=== PATIENT | male | born 1970 | race African-American/Black ===

== ENCOUNTER 2016-04-09 15:18 | Emergency (ER) | payer OTHER ==
[~2016-04-09] VITALS: Ht 172.7 cm; Wt 68.1 kg
[~2016-04-09 15:18] MED LIST: ASPI81 PO; INSU100V SQ; LISI-661 PO
[2016-04-09 16:16] LABS: GLUCOSE COMMENT 1 Doctor Notified; GLUCOSE,POINT OF CARE 500 MG/DL (70-110)
[2016-04-09 17:22] LABS: BASOPHILS % (AUTO) 1.5 % (0.0-2.0); EOSINOPHILS % (AUTO) 0.7 % (1.0-6.0); HEMATOCRIT 39.5 % (41-53); LYMPHOCYTES # (AUTO) 1.4 K/uL (1.0-4.8); LYMPHOCYTES % (AUTO) 21.4 % (22.0-44.0); MEAN CORPUSCULAR HGB CONC 32.9 G/dL (31.0-37.0); MEAN CORPUSCULAR VOLUME 79 fL (80-100); MONOCYTES # (AUTO) 0.3 K/uL (0.1-1.0); MONOCYTES % (AUTO) 4.4 % (2.0-9.0); NEUTROPHILS # (AUTO) 4.8 K/uL (1.8-7.7); PLATELET COUNT (AUTO) 312 K/uL (150-450); RED CELL DISTRIBUTION WIDTH 12.8 % (11.5-14.5); WHITE BLOOD COUNT (AUTO) 6.7 K/uL (4.5-11.0)
[2016-04-09 17:30] LABS: GLUCOSE COMMENT 1 Doctor Notified; GLUCOSE,POINT OF CARE 516 MG/DL (70-110)
[2016-04-09] MEDS ORDERED: INSULIN REGULAR, HUMAN 100 UNITS/ML SQ ONE (17:30)
[2016-04-09 17:32] LABS: RBC MORPHOLOGY COMMENT NORMAL RBC MORPH
[2016-04-09 17:34] LABS: PROTHROMBIN TIME 10.7 SEC (9.4-11.6)
[2016-04-09 17:43] LABS: ALBUMIN 3.5 g/dL (3.4-5.0); ANION GAP 7 mmol/L (8-16); CALCIUM, TOTAL 9.5 mg/dL (8.8-10.5); CARBON DIOXIDE 32 mmol/L (22-29); CHLORIDE 87 mmol/L (98-107); CREATININE 2.13 mg/dL (0.60-1.30); GLOMERULAR FILTR. RATE CALC 41 mL/min (>60); POTASSIUM 3.6 mmol/L (3.5-5.1); SODIUM SERUM 126 mmol/L (136-145); UREA NITROGEN, BLOOD 30 mg/dL (7-18)
[2016-04-09 17:48] LABS: B-TYPE NATRIURETIC PEPTIDE 16 pg/mL (0-100)
[2016-04-09 18:19] LABS: ALANINE AMINOTRANSFERASE 31 U/L (12-78); ASPARTATE AMINOTRANSFERASE 23 U/L (15-37); BILIRUBIN,TOTAL 0.4 mg/dL (0.1-1.0); CREATINE KINASE MB 3.3 ng/mL (0-5); CREATINE KINASE, TOTAL 261 U/L (39-308); TOTAL PROTEIN, SERUM 7.8 g/dL (6.4-8.2)
[2016-04-09 18:30] LABS: GLUCOSE COMMENT 1 Doctor Notified; GLUCOSE,POINT OF CARE 423 MG/DL (70-110)
[2016-04-09] MEDS ORDERED: SODIUM CHLORIDE 0.9% 1,000 ML IV ONE (20:15)
[2016-04-09 20:27] LABS: APPEARANCE,URINE CLEAR (CLEAR); GLUCOSE, URINE (UA) >=1000 mg/dL (NEGATIVE); KETONES,URINE NEGATIVE (NEGATIVE); LEUKOCYTE ESTERASE ,URINE NEGATIVE (NEGATIVE); OCCULT BLOOD,URINE NEGATIVE (NEGATIVE); PH,URINE 5.5 (5.0-8.0); PROTEIN,URINE NEGATIVE (NEGATIVE)
[2016-04-09 20:33] LABS: ADD UA MICROSCOPIC YES
[2016-04-09 20:43] LABS: RBC,URINE 0-2 /HPF (0-2); SQUAMOUS EPITHELIAL CELL,UR Few /LPF (None Seen); WBC,URINE 0-2 /HPF (0-5)
[2016-04-09 20:46] LABS: GLUCOSE,POINT OF CARE 309 MG/DL (70-110)
[2016-04-09 21:00] VITALS: BP 132/84
== END 2016-04-09 21:24 | disposition home or self-care (01) ==
LOC: EMS 15:19
DX: E11.65 Type 2 diabetes mellitus with hyperglycemia (principal); E11.29 Type 2 diabetes mellitus with other diabetic kidney complication; N28.9 Disorder of kidney and ureter, unspecified; K21.9 Gastro-esophageal reflux disease without esophagitis; I10 Essential (primary) hypertension; Z79.82 Long term (current) use of aspirin; Z79.4 Long term (current) use of insulin
CPT/HCPCS: 36415; 71010; 80053; 81001; 82550; 82553; 82962; 83880; 84484; 85025; 85610; 85730; 93005; 96360; 96372; 99285; J1815; J7030

== ENCOUNTER 2018-02-12 10:52 | Emergency (ER) | payer OTHER ==
[~2018-02-12] VITALS: Ht 172.7 cm; Wt 76.4 kg
[2018-02-12 12:42] LABS: BASOPHILS % (AUTO) 1.4 % (0.0-2.0); EOSINOPHILS % (AUTO) 1.9 % (1.0-6.0); HEMATOCRIT 35.7 % (41-53); HEMOGLOBIN 11.7 g/dL (13.5-17.5); LYMPHOCYTES # (AUTO) 1.4 K/uL (1.0-4.8); LYMPHOCYTES % (AUTO) 20.9 % (22.0-44.0); MEAN CORPUSCULAR HEMOGLOBIN 25.5 pg (26.0-34.0); MEAN CORPUSCULAR HGB CONC 32.8 G/dL (31.0-37.0); MEAN CORPUSCULAR VOLUME 78 fL (80-100); MONOCYTES # (AUTO) 0.5 K/uL (0.1-1.0); MONOCYTES % (AUTO) 7.8 % (2.0-9.0); NEUTROPHILS # (AUTO) 4.5 K/uL (1.8-7.7); PLATELET COUNT (AUTO) 287 K/uL (150-450); RED BLOOD CELL COUNT(AUTO) 4.59 MIL/uL (4.50-5.90); RED CELL DISTRIBUTION WIDTH 14.3 % (11.5-14.5)
[2018-02-12 12:55] LABS: CREATININE 1.68 mg/dL (0.60-1.30); POTASSIUM 4.2 mmol/L (3.5-5.1)
[2018-02-12 12:59] LABS: APPEARANCE,URINE CLEAR (CLEAR); BILIRUBIN,URINE NEGATIVE (NEGATIVE); GLUCOSE, URINE (UA) 250 mg/dL (NEGATIVE); KETONES,URINE NEGATIVE (NEGATIVE); LEUKOCYTE ESTERASE ,URINE NEGATIVE (NEGATIVE); NITRATE,URINE NEGATIVE (NEGATIVE); OCCULT BLOOD,URINE TRACE (NEGATIVE); PROTEIN,URINE NEGATIVE (NEGATIVE); UROBILINOGEN,URINE 0.2 mg/dL (<=1.0)
[2018-02-12 13:05] LABS: AMPHET/METH SCREEN,URINE NEGATIVE (NEGATIVE); BARBITURATE SCREEN, URINE NEGATIVE (NEGATIVE); BENZODIAZEPINES SCREEN,URINE NEGATIVE (NEGATIVE); CANNABINOID SCREEN,URINE NEGATIVE (NEGATIVE); COCAINE SCREEN,URINE NEGATIVE (NEGATIVE); METHADONE SCREEN, URINE NEGATIVE (NEGATIVE); OPIATE SCREEN,URINE NEGATIVE (NEGATIVE); PHENCYCLIDINE SCREEN,URINE NEGATIVE (NEGATIVE)
[2018-02-12 13:07] LABS: ALBUMIN 3.3 g/dL (3.4-5.0); BILIRUBIN,TOTAL 0.3 mg/dL (0.1-1.0); TOTAL PROTEIN, SERUM 7.7 g/dL (6.4-8.2)
[2018-02-12 13:30] LABS: BACTERIA,URINE None Seen /HPF (None Seen); RBC,URINE 0-2 /HPF (0-2); WBC,URINE None Seen /HPF (0-5)
[2018-02-12] MEDS ORDERED: SODIUM CHLORIDE 0.9% 1,000 ML IV ONE (13:30)
[2018-02-12 14:53] LABS: GLUCOSE,POINT OF CARE 139 MG/DL (70-110)
[2018-02-12 15:25] VITALS: BP 184/66
[2018-02-12 15:32] LABS: CALCIUM, TOTAL 8.7 mg/dL (8.8-10.5); CREATININE 1.6 mg/dL (0.60-1.30); POTASSIUM 4.1 mmol/L (3.5-5.1)
== END 2018-02-12 16:00 | disposition home or self-care (01) ==
LOC: EMS 10:53
DX: R53.1 Weakness (principal); E11.9 Type 2 diabetes mellitus without complications; K21.9 Gastro-esophageal reflux disease without esophagitis; G89.29 Other chronic pain; Z79.4 Long term (current) use of insulin; Z79.82 Long term (current) use of aspirin; Z79.899 Other long term (current) drug therapy
CPT/HCPCS: 36415; 71045; 80048; 80053; 80307; 81001; 82962; 83690; 84484; 85025; 93005; 99285; J7030

== ENCOUNTER 2021-04-24 23:21 | Inpatient (IN) | payer OTHER ==
[~2021-04-24] VITALS: Ht 175.3 cm; Wt 75.0 kg
[~2021-04-24 23:21] MED LIST changes: +ASPI-1450 PO; -ASPI81 PO; +GABA-1181 PO; +GLIP5 PO; +INSLAN SQ; -INSU100V SQ; -LISI-661 PO; +LISI-893 PO
[2021-04-24 23:46] LABS: GLUCOMETER DEV NAME(LOC) ERT.5; GLUCOSE,POINT OF CARE 166 MG/DL (70-110)
[2021-04-25] MEDS ORDERED: HYDROCODONE/ACETAMINOPHEN 5-325 MG TABLET PO ONE (03:15)
[2021-04-25 03:29] LABS: BASOPHILS % (AUTO) 0.9 % (0.0-2.0); EOSINOPHILS % (AUTO) 5.1 % (1.0-6.0); HEMATOCRIT 30.1 % (41-53); HEMOGLOBIN 9.8 g/dL (13.5-17.5); LYMPHOCYTES # (AUTO) 1.5 K/uL (1.0-4.8); LYMPHOCYTES % (AUTO) 27.3 % (22.0-44.0); MEAN CORPUSCULAR HEMOGLOBIN 24.6 pg (26.0-34.0); MEAN CORPUSCULAR HGB CONC 32.4 G/dL (31.0-37.0); MEAN CORPUSCULAR VOLUME 76 fL (80-100); MONOCYTES # (AUTO) 0.5 K/uL (0.1-1.0); MONOCYTES % (AUTO) 9.1 % (2.0-9.0); NEUTROPHILS # (AUTO) 3.1 K/uL (1.8-7.7); NEUTROPHILS % (AUTO) 57.6 % (40.0-70.0); PLATELET COUNT (AUTO) 343 K/uL (150-450); RED BLOOD CELL COUNT(AUTO) 3.96 MIL/uL (4.50-5.90); RED CELL DISTRIBUTION WIDTH 13.2 % (11.5-14.5)
[2021-04-25 04:08] LABS: CALCIUM, TOTAL 8.9 mg/dL (8.8-10.5); CREATININE 3.74 mg/dL (0.60-1.30); POTASSIUM 4.2 mmol/L (3.5-5.1)
[2021-04-25 04:14] LABS: ALBUMIN 2.9 g/dL (3.4-5.0); BILIRUBIN,TOTAL 0.3 mg/dL (0.1-1.0); TOTAL PROTEIN, SERUM 7.6 g/dL (6.4-8.2)
[2021-04-25 04:39] LABS: APPEARANCE,URINE CLEAR (CLEAR); BILIRUBIN,URINE NEGATIVE (NEGATIVE); GLUCOSE, URINE (UA) NEGATIVE (NEGATIVE); KETONES,URINE NEGATIVE (NEGATIVE); LEUKOCYTE ESTERASE ,URINE NEGATIVE (NEGATIVE); NITRATE,URINE NEGATIVE (NEGATIVE); OCCULT BLOOD,URINE MODERATE (NEGATIVE); PH,URINE 6.5 (5.0-8.0); PROTEIN,URINE SEE CONFIRM (NEGATIVE); UROBILINOGEN,URINE 0.2 mg/dL (<=1.0)
[2021-04-25 04:50] LABS: SULFOSALICYLIC ACID,URINE Negative (Negative)
[2021-04-25 04:51] LABS: BACTERIA,URINE None Seen /HPF (None Seen); WBC,URINE None Seen /HPF (0-5)
[2021-04-25] MEDS ORDERED: AmLODIPine BESYLATE 5 MG TABLET PO ONE ×2 (06:30→09:45)
[2021-04-25] MEDS ORDERED: ACETAMINOPHEN 325 MG TABLET PO PRN ×2 (08:15→09:30)
[2021-04-25] MEDS ORDERED: ONDANSETRON HCL 4 MG/2 ML VIAL IVP PRN ×2 (08:15→09:30)
[2021-04-25] MEDS ORDERED: HydrALAZINE HCL 20 MG/ML VIAL IVP ONE (08:15)
[2021-04-25 08:37] LABS: COVID AG,FIA SOURCE NASOPHARYNGEAL
[2021-04-25] MEDS ORDERED: FUROSEMIDE 20 MG TABLET PO SCH (09:00)
[2021-04-25] MEDS ORDERED: DEXTROSE 50%-WATER 25 GM/50 ML SYRINGE IVP PRN (09:00)
[2021-04-25] MEDS ORDERED: AmLODIPine BESYLATE 10 MG TABLET PO SCH (09:00)
[2021-04-25] MEDS ORDERED: LOSARTAN POTASSIUM 25 MG TABLET PO SCH (09:00)
[2021-04-25] MEDS: ASPIRIN 81 MG CHEWABLE TABLET PO SCH (09:13)
[2021-04-25 10:52] VITALS: BP 149/95
[2021-04-25] MEDS: INSULIN LISPRO 100 UNITS/ML SQ PRN ×2 (13:04→17:29)
[2021-04-25 13:06] LABS: GLUCOMETER DEV NAME(LOC) 5S.2B; GLUCOSE,POINT OF CARE 251 MG/DL (70-110)
[2021-04-25 16:00] VITALS: BP 137/99
[2021-04-25 17:37] LABS: GLUCOMETER DEV NAME(LOC) 5N.1C; GLUCOSE,POINT OF CARE 199 MG/DL (70-110)
[2021-04-25 20:04] VITALS: BP 132/81
[2021-04-25] MEDS: DOCUSATE SODIUM 100 MG CAPSULE PO SCH (21:00)
[2021-04-25] MEDS: FUROSEMIDE 40 MG/4 ML VIAL IVP SCH (21:09)
[2021-04-25] MEDS: HEPARIN SODIUM,PORCINE 5,000 UNITS/ML VIAL SQ SCH (21:10)
[2021-04-26 01:11] LABS: GLUCOMETER DEV NAME(LOC) 5N.3; GLUCOSE,POINT OF CARE 125 MG/DL (70-110)
[2021-04-26 04:43] VITALS: BP 138/93
[2021-04-26] MEDS: INSULIN LISPRO 100 UNITS/ML SQ PRN ×4 (06:43→20:23)
[2021-04-26 07:17] VITALS: BP 136/81
[2021-04-26 08:46] LABS: GLUCOMETER DEV NAME(LOC) 5N.1C; GLUCOSE,POINT OF CARE 163 MG/DL (70-110)
[2021-04-26] MEDS: DOCUSATE SODIUM 100 MG CAPSULE PO SCH ×2 (10:44→20:25)
[2021-04-26] MEDS: FUROSEMIDE 40 MG/4 ML VIAL IVP SCH ×2 (10:44→20:22)
[2021-04-26] MEDS: ASPIRIN 81 MG CHEWABLE TABLET PO SCH (10:44)
[2021-04-26] MEDS: HEPARIN SODIUM,PORCINE 5,000 UNITS/ML VIAL SQ SCH ×2 (10:45→20:22)
[2021-04-26] MEDS: AmLODIPine BESYLATE 10 MG TABLET PO SCH (10:45)
[2021-04-26] MEDS: FAMOTIDINE 20 MG TABLET PO SCH (10:45)
[2021-04-26 11:56] VITALS: BP 126/81
[2021-04-26 13:11] LABS: CALCIUM, TOTAL 8.4 mg/dL (8.8-10.5); CREATININE 3.98 mg/dL (0.60-1.30); PHOSPHORUS 3.8 mg/dL (2.5-4.9); POTASSIUM 4.3 mmol/L (3.5-5.1)
[2021-04-26 13:13] LABS: % IRON SATURATION 31.5 % (30-44)
[2021-04-26 16:12] VITALS: BP 138/80
[2021-04-26 17:01] LABS: GLUCOMETER DEV NAME(LOC) 5N.3; GLUCOSE,POINT OF CARE 285 MG/DL (70-110)
[2021-04-26 17:17] LABS: GLUCOMETER DEV NAME(LOC) 5N.1C; GLUCOSE,POINT OF CARE 236 MG/DL (70-110)
[2021-04-26] MEDS: GlipiZIDE 5 MG TABLET PO SCH (17:34)
[2021-04-26 19:40] VITALS: BP 123/77
[2021-04-27 00:44] VITALS: BP 139/78
[2021-04-27 04:19] VITALS: BP 147/79
[2021-04-27] MEDS: GlipiZIDE 5 MG TABLET PO SCH (05:35)
[2021-04-27] MEDS: INSULIN LISPRO 100 UNITS/ML SQ PRN ×2 (05:36→11:19)
[2021-04-27 07:26] LABS: GLUCOMETER DEV NAME(LOC) 5S.1; GLUCOSE,POINT OF CARE 240 MG/DL (70-110)
[2021-04-27 07:26] LABS: GLUCOMETER DEV NAME(LOC) 5S.1; GLUCOSE,POINT OF CARE 200 MG/DL (70-110)
[2021-04-27 07:30] LABS: SODIUM TIMED,URINE 89 mmol/L (20-110); TPROTEIN TIMED,URINE 48 mg/dL
[2021-04-27 07:32] LABS: COLLECTION TIME,URINE 24 HR; SODIUM URINE, 24HR CALC 312 mmol/24H (40-220); TPROTEIN URINE, 24HRS COLL 1680 mg/24Hr (0-165)
[2021-04-27] MEDS: HEPARIN SODIUM,PORCINE 5,000 UNITS/ML VIAL SQ SCH (07:57)
[2021-04-27] MEDS: AmLODIPine BESYLATE 10 MG TABLET PO SCH (07:57)
[2021-04-27] MEDS: FAMOTIDINE 20 MG TABLET PO SCH (07:57)
[2021-04-27] MEDS: FUROSEMIDE 40 MG/4 ML VIAL IVP SCH (07:58)
[2021-04-27] MEDS: DOCUSATE SODIUM 100 MG CAPSULE PO SCH (07:58)
[2021-04-27] MEDS: ASPIRIN 81 MG CHEWABLE TABLET PO SCH (07:58)
[2021-04-27 08:00] VITALS: BP 157/90
[2021-04-27 08:23] LABS: CALCIUM, TOTAL 8.4 mg/dL (8.8-10.5); CREATININE 4.05 mg/dL (0.60-1.30); POTASSIUM 4.4 mmol/L (3.5-5.1)
[2021-04-27] MEDS ORDERED: AMLO-258 PO (10:14)
[2021-04-27] MEDS ORDERED: FURO20 PO (10:14)
[2021-04-27 11:37] LABS: GLUCOMETER DEV NAME(LOC) 5N.1C; GLUCOSE,POINT OF CARE 244 MG/DL (70-110)
[2021-04-27 11:53] VITALS: BP 161/112
[2021-04-27] MEDS ORDERED: CloNIDine HCL 0.1 MG TABLET PO ONE (12:15)
== END 2021-04-27 13:35 | disposition home or self-care (01) | DRG 199 ==
LOC: EMS 23:35 → MERGE 04-25 09:25 → 5S 04-25 09:25
PROVIDERS: ADMIT Internal Medicine; ATTEND Internal Medicine
DX: I16.1 Hypertensive emergency (principal); N17.9 Acute kidney failure, unspecified; E11.21 Type 2 diabetes mellitus with diabetic nephropathy; I50.32 Chronic diastolic (congestive) heart failure; D64.9 Anemia, unspecified; E11.22 Type 2 diabetes mellitus with diabetic chronic kidney disease; E11.65 Type 2 diabetes mellitus with hyperglycemia; I13.2 Hypertensive heart and chronic kidney disease with heart failure and with stage 5 chronic kidney disease, or end stage renal disease; N18.6 End stage renal disease; E78.5 Hyperlipidemia, unspecified; Z79.4 Long term (current) use of insulin; Z79.82 Long term (current) use of aspirin; Z79.84 Long term (current) use of oral hypoglycemic drugs; Z79.899 Other long term (current) drug therapy; Z91.19 Patient's noncompliance with other medical treatment and regimen; Z20.822 Contact with and (suspected) exposure to COVID-19
CPT/HCPCS: 71045; 76770; 80048; 80053; 81001; 81002; 81050; 82962; 83540; 83550; 83880; 84100; 84156; 84300; 85025; 93005; 93306; 99285; J0360; J1644; J1940; J2405; 36415-L1; 36415-TC

== ENCOUNTER 2021-07-25 01:16 | Emergency (ER) | payer OTHER ==
[~2021-07-25] VITALS: Ht 180.3 cm; Wt 70.5 kg
[~2021-07-25 01:16] MED LIST changes: +AMLO-258 PO; +ASPI-1444 PO; -ASPI-1450 PO; +ATOR20TA65 PO; +BUME1TAB34 PO; +FERR325T27 PO; -GABA-1181 PO; +INSU100V36 SQ; -LISI-893 PO; +SENN8.6T20 PO
[2021-07-25] MEDS ORDERED: INSU100I26 SQ (01:39)
[2021-07-25 01:46] LABS: GLUCOMETER DEV NAME(LOC) ERT.5; GLUCOSE,POINT OF CARE 218 MG/DL (70-110)
[2021-07-25] MEDS ORDERED: ACETAMINOPHEN 325 MG TABLET PO ONE (02:45)
[2021-07-25] MEDS ORDERED: LIDOCAINE 1% 10 ML VIAL ID ONE (02:45)
[2021-07-25 04:04] LABS: SPECIMENTYPE,BODY FLUID SYNOVIAL
[2021-07-25 05:21] LABS: APPEARANCE,SPUN,BODY FLUID HAZY (CLEAR); APPEARANCE,UNSPUN,BODY FLUID CLOUDY (CLEAR)
[2021-07-25 05:22] LABS: COLOR,BODY FLUID YELLOW (LT YELLOW); TOTAL VOLUME,BODY FLUID 37 mL; WBC, BODY FLUID 6450 /cu. mm.
[2021-07-25 05:30] LABS: BASOPHILS,BODY FLUID 0 %; EOSINOPHILS,BF (ANAL) 0 %; LYMPHOCYTES,BODY FLUID 4 %; MONOCYTES,BODY FLUID 1 %; NEUTROPHILS,BODY FLUID 95 %
[2021-07-25 06:00] VITALS: BP 132/69
== END 2021-07-25 06:34 | disposition home or self-care (01) ==
LOC: EMS 01:18
DX: M25.461 Effusion, right knee (principal); I13.0 Hypertensive heart and chronic kidney disease with heart failure and stage 1 through stage 4 chronic kidney disease, or unspecified chronic kidney disease; E11.22 Type 2 diabetes mellitus with diabetic chronic kidney disease; N18.9 Chronic kidney disease, unspecified; I50.9 Heart failure, unspecified; Z79.82 Long term (current) use of aspirin
CPT/HCPCS: 20610; 73564; 82945; 82962; 87070; 87075; 87205; 89051; 89060; 99284; J3490

== ENCOUNTER 2022-02-08 14:57 | Emergency (ER) | payer OTHER ==
[~2022-02-08] VITALS: Ht 170.2 cm; Wt 75.5 kg
[~2022-02-08 14:57] MED LIST changes: -BUME1TAB34 PO; -FERR325T27 PO; -GLIP5 PO; -INSLAN SQ; +INSU100I26 SQ; -INSU100V36 SQ; -SENN8.6T20 PO
[2022-02-08] MEDS ORDERED: ACETAMINOPHEN 500 MG TABLET PO ONE (20:15)
[2022-02-08 20:49] VITALS: BP 154/100
== END 2022-02-08 21:03 | disposition home or self-care (01) ==
LOC: EMS 15:03
DX: M25.561 Pain in right knee (principal); I13.0 Hypertensive heart and chronic kidney disease with heart failure and stage 1 through stage 4 chronic kidney disease, or unspecified chronic kidney disease; E11.22 Type 2 diabetes mellitus with diabetic chronic kidney disease; I50.9 Heart failure, unspecified; N18.9 Chronic kidney disease, unspecified
CPT/HCPCS: 99283

== ENCOUNTER 2022-03-24 13:21 | Inpatient (IN) | payer OTHER ==
[~2022-03-24] VITALS: Ht 180.3 cm; Wt 93.8 kg
[2022-03-24 14:50] LABS: BASOPHILS % (AUTO) 0.6 % (0.0-2.0); EOSINOPHILS % (AUTO) 2.9 % (1.0-6.0); HEMATOCRIT 24.2 % (41-53); HEMOGLOBIN 7.6 g/dL (13.5-17.5); LYMPHOCYTES # (AUTO) 0.5 K/uL (1.0-4.8); LYMPHOCYTES % (AUTO) 9.8 % (22.0-44.0); MEAN CORPUSCULAR HEMOGLOBIN 24.2 pg (26.0-34.0); MEAN CORPUSCULAR HGB CONC 31.6 G/dL (31.0-37.0); MEAN CORPUSCULAR VOLUME 77 fL (80-100); MONOCYTES # (AUTO) 0.3 K/uL (0.1-1.0); MONOCYTES % (AUTO) 6.3 % (2.0-9.0); NEUTROPHILS % (AUTO) 80.4 % (40.0-70.0); PLATELET COUNT (AUTO) 261 K/uL (150-450); RED BLOOD CELL COUNT(AUTO) 3.16 MIL/uL (4.50-5.90); RED CELL DISTRIBUTION WIDTH 17.5 % (11.5-14.5)
[2022-03-24 15:11] LABS: CALCIUM, TOTAL 7.3 mg/dL (8.8-10.5); CREATININE 6.91 mg/dL (0.60-1.30); POTASSIUM 5.4 mmol/L (3.5-5.1)
[2022-03-24 15:16] LABS: ALBUMIN 2.4 g/dL (3.4-5.0); BILIRUBIN,TOTAL 0.2 mg/dL (0.1-1.0)
[2022-03-24 15:40] LABS: COVID AG,FIA SOURCE NASAL SWAB
[2022-03-24] MEDS ORDERED: SODIUM POLYSTYRENE SULFONATE 15 GM/60 ML SUSPENSION BOTTLE PO ONE (16:45)
[2022-03-24] MEDS ORDERED: ZOLPIDEM TARTRATE 5 MG TABLET PO PRN (16:45)
[2022-03-24] MEDS ORDERED: BISACODYL 10 MG RECTAL RECTAL SUPPOSITORY PR PRN (16:45)
[2022-03-24] MEDS ORDERED: MORPHINE SULFATE 2 MG/ML SYRINGE IVP PRN (16:45)
[2022-03-24] MEDS ORDERED: FUROSEMIDE 20 MG/2 ML VIAL IVP SCH (17:30)
[2022-03-24] MEDS: HydrALAZINE HCL 20 MG/ML VIAL IVP PRN (17:31)
[2022-03-24] MEDS: DOCUSATE SODIUM 100 MG CAPSULE PO SCH (21:55)
[2022-03-24] MEDS: ATORVASTATIN CALCIUM 20 MG TABLET PO SCH (21:56)
[2022-03-24] MEDS: FUROSEMIDE 40 MG/4 ML VIAL IVP SCH (21:58)
[2022-03-25] MEDS: HydrALAZINE HCL 20 MG/ML VIAL IVP PRN (01:20)
[2022-03-25 01:21] VITALS: BP 182/111
[2022-03-25 02:03] LABS: APPEARANCE,URINE CLEAR (CLEAR); BILIRUBIN,URINE NEGATIVE (NEGATIVE); GLUCOSE, URINE (UA) NEGATIVE (NEGATIVE); KETONES,URINE NEGATIVE (NEGATIVE); LEUKOCYTE ESTERASE ,URINE NEGATIVE (NEGATIVE); NITRATE,URINE NEGATIVE (NEGATIVE); OCCULT BLOOD,URINE SMALL (NEGATIVE); PH,URINE 6.5 (5.0-8.0); PROTEIN,URINE 30-70 mg/dL (NEGATIVE); SPECIFIC GRAVITIY, URINE 1.008 (1.003-1.030); UROBILINOGEN,URINE <=1.0 mg/dL (<=1.0)
[2022-03-25 02:14] LABS: SODIUM,URINE RANDOM 110 mmol/l (20-110)
[2022-03-25 02:15] LABS: PROTEIN,URINE RANDOM 105 mg/dL (0-11.9); UREA NITROGEN,URINE RANDOM 183 mg/dL (350-1000)
[2022-03-25 02:30] LABS: BACTERIA,URINE Rare /HPF (None Seen); SQUAMOUS EPITHELIAL CELL,UR Rare /LPF (None Seen); WBC,URINE 0-2 /HPF (0-5)
[2022-03-25] MEDS ORDERED: INFLUENZA VIRUS VACCINE QVS 2022-23 (6MO+)/PF 60 MCG/0.5 ML SYRINGE IM. ONE (04:00)
[2022-03-25] MEDS ORDERED: PNEUMOCOCCAL VACCINE POLYVALENT 0.5 ML VIAL [PPSV23] IM. ONE (04:00)
[2022-03-25 05:23] VITALS: BP 181/102
[2022-03-25] MEDS: CloNIDine HCL 0.1 MG TABLET PO PRN (05:50)
[2022-03-25 07:25] VITALS: BP 130/72
[2022-03-25] MEDS: HEPARIN SODIUM,PORCINE 5,000 UNITS/ML VIAL SQ SCH ×3 (08:50→16:00)
[2022-03-25] MEDS: FUROSEMIDE 40 MG/4 ML VIAL IVP SCH ×2 (08:51→21:02)
[2022-03-25] MEDS: ASPIRIN 81 MG DR TABLET PO SCH (08:51)
[2022-03-25] MEDS: PANTOPRAZOLE SODIUM 40 MG DR TABLET PO SCH (08:51)
[2022-03-25] MEDS: AmLODIPine BESYLATE 10 MG TABLET PO SCH (08:51)
[2022-03-25] MEDS: DOCUSATE SODIUM 100 MG CAPSULE PO SCH ×2 (08:51→21:03)
[2022-03-25 11:30] VITALS: BP 134/88
[2022-03-25 12:04] LABS: BASOPHILS % (AUTO) 0.8 % (0.0-2.0); EOSINOPHILS % (AUTO) 1.3 % (1.0-6.0); HEMATOCRIT 23.9 % (41-53); HEMOGLOBIN 7.5 g/dL (13.5-17.5); LYMPHOCYTES # (AUTO) 0.5 K/uL (1.0-4.8); MEAN CORPUSCULAR HGB CONC 31.5 G/dL (31.0-37.0); MEAN CORPUSCULAR VOLUME 76 fL (80-100); MONOCYTES # (AUTO) 0.4 K/uL (0.1-1.0); MONOCYTES % (AUTO) 6.9 % (2.0-9.0); NEUTROPHILS # (AUTO) 4.3 K/uL (1.8-7.7); PLATELET COUNT (AUTO) 284 K/uL (150-450); RED BLOOD CELL COUNT(AUTO) 3.13 MIL/uL (4.50-5.90); RED CELL DISTRIBUTION WIDTH 17.4 % (11.5-14.5)
[2022-03-25 12:06] LABS: CALCIUM, TOTAL 7.3 mg/dL (8.8-10.5); CALCIUM, TOTAL 7.4 mg/dL (8.8-10.5); CREATININE 6.67 mg/dL (0.60-1.30); CREATININE 6.68 mg/dL (0.60-1.30); POTASSIUM 4.8 mmol/L (3.5-5.1)
[2022-03-25] MEDS: FERROUS SULFATE 325 MG EC TABLET PO SCH (12:14)
[2022-03-25] MEDS: CALCITRIOL 0.25 MCG CAPSULE PO SCH (12:14)
[2022-03-25] MEDS: CARVEDILOL 6.25 MG TABLET PO SCH ×2 (12:14→21:03)
[2022-03-25] MEDS: HYDROCODONE/ACETAMINOPHEN 5-325 MG TABLET PO PRN ×2 (12:14→17:46)
[2022-03-25] MEDS: SODIUM ZIRCONIUM CYCLOSILICATE 5 GM POWDER PACKET PO SCH (12:14)
[2022-03-25 14:58] VITALS: BP 148/86
[2022-03-25] MEDS ORDERED: DEXTROSE 50%-WATER 25 GM/50 ML SYRINGE IVP PRN (17:45)
[2022-03-25] MEDS: INSULIN LISPRO 100 UNITS/ML SQ PRN ×2 (17:51→21:03)
[2022-03-25 18:06] LABS: GLUCOMETER DEV NAME(LOC) 5N.1C; GLUCOSE,POINT OF CARE 245 MG/DL (70-110)
[2022-03-25 20:07] VITALS: BP 135/79
[2022-03-25] MEDS: ISOSORBIDE DINITRATE 5 MG TABLET PO SCH (21:04)
[2022-03-25] MEDS: ATORVASTATIN CALCIUM 20 MG TABLET PO SCH (21:04)
[2022-03-25 21:56] LABS: GLUCOMETER DEV NAME(LOC) 5S.2B; GLUCOSE,POINT OF CARE 199 MG/DL (70-110)
[2022-03-25] MEDS: ACETAMINOPHEN 325 MG TABLET PO PRN (23:12)
[2022-03-26] MEDS: HEPARIN SODIUM,PORCINE 5,000 UNITS/ML VIAL SQ SCH ×3 (00:02→17:27)
[2022-03-26] MEDS: HydrALAZINE HCL 25 MG TABLET PO SCH ×4 (00:02→23:25)
[2022-03-26 00:07] VITALS: BP 134/66
[2022-03-26 02:11] LABS: SODIUM TIMED,URINE 103 mmol/L (20-110); URINE UREA NITROGEN, TIMED 194 mg/dL (350-1000)
[2022-03-26 02:29] LABS: SODIUM URINE, 24HR CALC 206 mmol/24H (40-220); UREA NITROGEN URINE,24HR CALC 3880 mg/24H (7000-20000)
[2022-03-26 02:30] LABS: COLLECTION TIME,URINE 24 HR
[2022-03-26 03:24] LABS: CREATININE,URINE 37.7 mg/dL (30.0-125.0)
[2022-03-26 03:34] LABS: CREATININE,SERUM FOR CRCL 6.67 mg/dL (0.60-1.30)
[2022-03-26 04:02] LABS: TPROTEIN TIMED,URINE 99 mg/dL
[2022-03-26 04:03] LABS: COLLECTION TIME,URINE 24 HR; TPROTEIN URINE, 24HRS COLL 1980 mg/24Hr (0-165)
[2022-03-26 04:21] VITALS: BP 142/83
[2022-03-26 06:30] LABS: BASOPHILS % (AUTO) 0.9 % (0.0-2.0); EOSINOPHILS % (AUTO) 4.5 % (1.0-6.0); HEMATOCRIT 21.7 % (41-53); HEMOGLOBIN 7.1 g/dL (13.5-17.5); LYMPHOCYTES # (AUTO) 0.7 K/uL (1.0-4.8); LYMPHOCYTES % (AUTO) 15.3 % (22.0-44.0); MEAN CORPUSCULAR HEMOGLOBIN 24.9 pg (26.0-34.0); MEAN CORPUSCULAR HGB CONC 32.6 G/dL (31.0-37.0); MEAN CORPUSCULAR VOLUME 76 fL (80-100); MONOCYTES # (AUTO) 0.4 K/uL (0.1-1.0); MONOCYTES % (AUTO) 8.5 % (2.0-9.0); NEUTROPHILS # (AUTO) 3.1 K/uL (1.8-7.7); NEUTROPHILS % (AUTO) 70.8 % (40.0-70.0); PLATELET COUNT (AUTO) 261 K/uL (150-450); RED BLOOD CELL COUNT(AUTO) 2.85 MIL/uL (4.50-5.90); RED CELL DISTRIBUTION WIDTH 16.9 % (11.5-14.5)
[2022-03-26 07:12] LABS: CALCIUM, TOTAL 7.2 mg/dL (8.8-10.5); POTASSIUM 4.7 mmol/L (3.5-5.1)
[2022-03-26 07:28] VITALS: BP 139/89
[2022-03-26] MEDS: FERROUS SULFATE 325 MG EC TABLET PO SCH (08:28)
[2022-03-26] MEDS: DOCUSATE SODIUM 100 MG CAPSULE PO SCH ×2 (08:29→21:00)
[2022-03-26] MEDS: ISOSORBIDE DINITRATE 5 MG TABLET PO SCH ×3 (08:29→20:51)
[2022-03-26] MEDS: ASPIRIN 81 MG DR TABLET PO SCH (08:29)
[2022-03-26] MEDS: SODIUM ZIRCONIUM CYCLOSILICATE 5 GM POWDER PACKET PO SCH (08:29)
[2022-03-26] MEDS: CARVEDILOL 6.25 MG TABLET PO SCH ×2 (08:29→20:51)
[2022-03-26] MEDS: AmLODIPine BESYLATE 10 MG TABLET PO SCH (08:29)
[2022-03-26] MEDS: FUROSEMIDE 40 MG/4 ML VIAL IVP SCH ×2 (08:29→20:51)
[2022-03-26] MEDS: PANTOPRAZOLE SODIUM 40 MG DR TABLET PO SCH (08:30)
[2022-03-26] MEDS: CALCITRIOL 0.25 MCG CAPSULE PO SCH (08:30)
[2022-03-26 11:37] VITALS: BP 128/87
[2022-03-26] MEDS: METOLAZONE 2.5 MG TABLET PO SCH (11:49)
[2022-03-26] MEDS: HYDROCODONE/ACETAMINOPHEN 5-325 MG TABLET PO PRN (11:49)
[2022-03-26] MEDS: INSULIN LISPRO 100 UNITS/ML SQ PRN ×3 (11:51→20:54)
[2022-03-26] MEDS: ONDANSETRON HCL 4 MG/2 ML VIAL IVP PRN (15:00)
[2022-03-26 15:38] VITALS: BP 121/74
[2022-03-26] MEDS: EPOETIN ALFA 10,000 UNITS/ML VIAL SQ SCH (17:27)
[2022-03-26] MEDS: ATORVASTATIN CALCIUM 20 MG TABLET PO SCH (20:51)
[2022-03-26 23:41] VITALS: BP 160/94
[2022-03-27 01:21] LABS: GLUCOMETER DEV NAME(LOC) 5N.1C; GLUCOSE,POINT OF CARE 268 MG/DL (70-110)
[2022-03-27 01:22] LABS: GLUCOMETER DEV NAME(LOC) 5N.1C; GLUCOSE,POINT OF CARE 208 MG/DL (70-110)
[2022-03-27 01:22] LABS: GLUCOMETER DEV NAME(LOC) 5S.2B; GLUCOSE,POINT OF CARE 217 MG/DL (70-110)
[2022-03-27 01:22] LABS: GLUCOMETER DEV NAME(LOC) 5S.2B; GLUCOSE,POINT OF CARE 177 MG/DL (70-110)
[2022-03-27] MEDS: HYDROCODONE/ACETAMINOPHEN 5-325 MG TABLET PO PRN (04:25)
[2022-03-27 05:05] VITALS: BP 137/74
[2022-03-27 06:12] LABS: BASOPHILS % (AUTO) 0.9 % (0.0-2.0); EOSINOPHILS % (AUTO) 3.2 % (1.0-6.0); HEMATOCRIT 21.6 % (41-53); HEMOGLOBIN 7.1 g/dL (13.5-17.5); LYMPHOCYTES # (AUTO) 0.7 K/uL (1.0-4.8); LYMPHOCYTES % (AUTO) 14.1 % (22.0-44.0); MEAN CORPUSCULAR HEMOGLOBIN 25.2 pg (26.0-34.0); MEAN CORPUSCULAR HGB CONC 32.8 G/dL (31.0-37.0); MEAN CORPUSCULAR VOLUME 77 fL (80-100); MONOCYTES # (AUTO) 0.4 K/uL (0.1-1.0); MONOCYTES % (AUTO) 8.7 % (2.0-9.0); NEUTROPHILS # (AUTO) 3.4 K/uL (1.8-7.7); NEUTROPHILS % (AUTO) 73.1 % (40.0-70.0); PLATELET COUNT (AUTO) 266 K/uL (150-450); RED BLOOD CELL COUNT(AUTO) 2.82 MIL/uL (4.50-5.90)
[2022-03-27] MEDS ORDERED: LIDOCAINE/PF 1% 30 ML VIAL ONE (07:31)
[2022-03-27] MEDS ORDERED: SODIUM CHLORIDE 0.9% 0 ML IV ONE (07:31)
[2022-03-27] MEDS ORDERED: BACITRACIN 28 GM OINTMENT TP ONE (07:31)
[2022-03-27] MEDS ORDERED: HEPARIN SODIUM,PORCINE 5,000 UNITS/ML VIAL ONE ×2 (07:31→09:21)
[2022-03-27 07:37] LABS: CALCIUM, TOTAL 6.8 mg/dL (8.8-10.5); CREATININE 7.23 mg/dL (0.60-1.30); POTASSIUM 5.5 mmol/L (3.5-5.1)
[2022-03-27] MEDS ORDERED: SODIUM CHLORIDE 0.9% 1,000 ML ONE (07:48)
[2022-03-27] MEDS: HydrALAZINE HCL 25 MG TABLET PO SCH ×3 (08:00→23:40)
[2022-03-27] MEDS: FERROUS SULFATE 325 MG EC TABLET PO SCH (08:00)
[2022-03-27] MEDS: HEPARIN SODIUM,PORCINE 5,000 UNITS/ML VIAL SQ SCH ×3 (08:00→16:47)
[2022-03-27] MEDS ORDERED: VANCOMYCIN HCL 1 GM/VIAL ONE (08:05)
[2022-03-27] MEDS: ASPIRIN 81 MG DR TABLET PO SCH (09:00)
[2022-03-27] MEDS: PANTOPRAZOLE SODIUM 40 MG DR TABLET PO SCH (09:00)
[2022-03-27] MEDS: CALCITRIOL 0.25 MCG CAPSULE PO SCH (09:00)
[2022-03-27] MEDS: DOCUSATE SODIUM 100 MG CAPSULE PO SCH ×2 (09:00→21:14)
[2022-03-27] MEDS: ISOSORBIDE DINITRATE 5 MG TABLET PO SCH ×3 (09:00→21:13)
[2022-03-27] MEDS: FUROSEMIDE 40 MG/4 ML VIAL IVP SCH ×2 (09:00→21:13)
[2022-03-27] MEDS: CARVEDILOL 6.25 MG TABLET PO SCH ×2 (09:00→21:14)
[2022-03-27] MEDS: SODIUM ZIRCONIUM CYCLOSILICATE 5 GM POWDER PACKET PO SCH ×2 (09:00→14:34)
[2022-03-27] MEDS: METOLAZONE 2.5 MG TABLET PO SCH (09:00)
[2022-03-27] MEDS: AmLODIPine BESYLATE 10 MG TABLET PO SCH (09:00)
[2022-03-27] MEDS ORDERED: KETAMINE HCL 50 MG/ML 10 ML VIAL IVP ONE (12:00)
[2022-03-27] MEDS ORDERED: MIDAZOLAM HCL 2 MG/2 ML VIAL IVP ONE (12:00)
[2022-03-27] MEDS ORDERED: FentaNYL CITRATE PF 100 MCG/2 ML VIAL IVP ONE (12:00)
[2022-03-27 12:08] VITALS: BP 115/67
[2022-03-27] MEDS: INSULIN LISPRO 100 UNITS/ML SQ PRN ×3 (12:39→21:12)
[2022-03-27] MEDS: MAGNESIUM HYDROXIDE SUSPENSION 30 ML UDCUP PO PRN (14:35)
[2022-03-27 15:30] VITALS: BP 125/79
[2022-03-27 19:54] VITALS: BP 153/92
[2022-03-27 20:31] LABS: GLUCOMETER DEV NAME(LOC) 5S.2B; GLUCOSE,POINT OF CARE 175 MG/DL (70-110)
[2022-03-27 20:31] LABS: GLUCOMETER DEV NAME(LOC) 5N.1C; GLUCOSE,POINT OF CARE 210 MG/DL (70-110)
[2022-03-27] MEDS: ATORVASTATIN CALCIUM 20 MG TABLET PO SCH (21:13)
[2022-03-27 23:50] VITALS: BP 160/98
[2022-03-28] MEDS: OxyCODONE HCL 5 MG IR TABLET PO PRN ×2 (03:07→13:56)
[2022-03-28 05:09] VITALS: BP 142/61
[2022-03-28] MEDS: INSULIN LISPRO 100 UNITS/ML SQ PRN ×3 (06:40→17:46)
[2022-03-28] MEDS: ACETAMINOPHEN 325 MG TABLET PO PRN ×2 (06:44→06:57)
[2022-03-28] MEDS: HydrALAZINE HCL 25 MG TABLET PO SCH ×3 (08:23→23:50)
[2022-03-28] MEDS: ASPIRIN 81 MG DR TABLET PO SCH (08:23)
[2022-03-28] MEDS: FUROSEMIDE 40 MG/4 ML VIAL IVP SCH (08:24)
[2022-03-28] MEDS: HEPARIN SODIUM,PORCINE 5,000 UNITS/ML VIAL SQ SCH ×4 (08:24→23:50)
[2022-03-28] MEDS: FERROUS SULFATE 325 MG EC TABLET PO SCH (08:24)
[2022-03-28] MEDS: ISOSORBIDE DINITRATE 5 MG TABLET PO SCH ×3 (08:25→20:05)
[2022-03-28] MEDS: DOCUSATE SODIUM 100 MG CAPSULE PO SCH ×2 (08:25→20:04)
[2022-03-28] MEDS: CARVEDILOL 6.25 MG TABLET PO SCH ×2 (08:25→20:04)
[2022-03-28] MEDS: AmLODIPine BESYLATE 10 MG TABLET PO SCH (08:25)
[2022-03-28] MEDS: PANTOPRAZOLE SODIUM 40 MG DR TABLET PO SCH (08:25)
[2022-03-28] MEDS: METOLAZONE 2.5 MG TABLET PO SCH (08:26)
[2022-03-28] MEDS: CALCITRIOL 0.25 MCG CAPSULE PO SCH (08:26)
[2022-03-28] MEDS: ONDANSETRON HCL 4 MG/2 ML VIAL IVP PRN (08:35)
[2022-03-28] MEDS: MAGNESIUM HYDROXIDE SUSPENSION 30 ML UDCUP PO PRN (08:35)
[2022-03-28 09:00] VITALS: BP 149/85
[2022-03-28] MEDS: SODIUM ZIRCONIUM CYCLOSILICATE 5 GM POWDER PACKET PO SCH (09:55)
[2022-03-28 10:50] LABS: BASOPHILS % (AUTO) 0.6 % (0.0-2.0); EOSINOPHILS % (AUTO) 0.6 % (1.0-6.0); HEMOGLOBIN 7.4 g/dL (13.5-17.5); LYMPHOCYTES # (AUTO) 0.6 K/uL (1.0-4.8); LYMPHOCYTES % (AUTO) 9.4 % (22.0-44.0); MEAN CORPUSCULAR HEMOGLOBIN 24.5 pg (26.0-34.0); MEAN CORPUSCULAR HGB CONC 32.3 G/dL (31.0-37.0); MEAN CORPUSCULAR VOLUME 76 fL (80-100); MONOCYTES # (AUTO) 0.5 K/uL (0.1-1.0); MONOCYTES % (AUTO) 8.9 % (2.0-9.0); NEUTROPHILS # (AUTO) 4.9 K/uL (1.8-7.7); NEUTROPHILS % (AUTO) 80.5 % (40.0-70.0); PLATELET COUNT (AUTO) 279 K/uL (150-450); RED BLOOD CELL COUNT(AUTO) 3.03 MIL/uL (4.50-5.90)
[2022-03-28 11:05] LABS: CALCIUM, TOTAL 7.6 mg/dL (8.8-10.5); CREATININE 7.65 mg/dL (0.60-1.30); POTASSIUM 5.7 mmol/L (3.5-5.1)
[2022-03-28 12:00] VITALS: BP 162/88
[2022-03-28] MEDS ORDERED: SODIUM ZIRCONIUM CYCLOSILICATE 5 GM POWDER PACKET PO ONE (12:00)
[2022-03-28] MEDS ORDERED: PROPOFOL 1% 20 ML VIAL IVP ONE (12:00)
[2022-03-28 19:39] VITALS: BP 138/64
[2022-03-28] MEDS: FUROSEMIDE 80 MG TABLET PO SCH (20:05)
[2022-03-28] MEDS: ATORVASTATIN CALCIUM 20 MG TABLET PO SCH (20:05)
[2022-03-28 20:21] LABS: GLUCOMETER DEV NAME(LOC) 5S.2B; GLUCOSE,POINT OF CARE 225 MG/DL (70-110)
[2022-03-29 05:20] VITALS: BP 170/82
[2022-03-29] MEDS: CloNIDine HCL 0.1 MG TABLET PO PRN (06:40)
[2022-03-29 06:56] LABS: GLUCOMETER DEV NAME(LOC) 5N.1C; GLUCOSE,POINT OF CARE 221 MG/DL (70-110)
[2022-03-29 06:56] LABS: GLUCOMETER DEV NAME(LOC) 5N.1C; GLUCOSE,POINT OF CARE 246 MG/DL (70-110)
[2022-03-29 08:00] VITALS: BP 110/51
[2022-03-29] MEDS: FERROUS SULFATE 325 MG EC TABLET PO SCH (08:30)
[2022-03-29] MEDS: FUROSEMIDE 80 MG TABLET PO SCH (08:31)
[2022-03-29] MEDS: METOLAZONE 2.5 MG TABLET PO SCH (08:31)
[2022-03-29] MEDS: DOCUSATE SODIUM 100 MG CAPSULE PO SCH ×2 (08:31→20:30)
[2022-03-29] MEDS: CALCITRIOL 0.25 MCG CAPSULE PO SCH (08:31)
[2022-03-29] MEDS: HEPARIN SODIUM,PORCINE 5,000 UNITS/ML VIAL SQ SCH ×4 (08:32→23:26)
[2022-03-29] MEDS: ASPIRIN 81 MG DR TABLET PO SCH (08:32)
[2022-03-29] MEDS: SODIUM ZIRCONIUM CYCLOSILICATE 5 GM POWDER PACKET PO SCH (08:33)
[2022-03-29] MEDS: PANTOPRAZOLE SODIUM 40 MG DR TABLET PO SCH (08:33)
[2022-03-29] MEDS: OxyCODONE HCL 5 MG IR TABLET PO PRN ×2 (08:49→15:58)
[2022-03-29 11:11] LABS: CALCIUM, TOTAL 7.6 mg/dL (8.8-10.5); CREATININE 7.97 mg/dL (0.60-1.30); POTASSIUM 5.6 mmol/L (3.5-5.1)
[2022-03-29 12:45] VITALS: BP 159/77
[2022-03-29] MEDS: INSULIN LISPRO 100 UNITS/ML SQ PRN ×2 (13:13→20:43)
[2022-03-29] MEDS: HydrALAZINE HCL 25 MG TABLET PO SCH ×6 (13:13→23:35)
[2022-03-29] MEDS: AmLODIPine BESYLATE 10 MG TABLET PO SCH (13:13)
[2022-03-29] MEDS: CARVEDILOL 6.25 MG TABLET PO SCH ×2 (13:14→20:30)
[2022-03-29] MEDS: ISOSORBIDE DINITRATE 5 MG TABLET PO SCH ×4 (13:17→21:00)
[2022-03-29 16:27] LABS: CALCIUM, TOTAL 7.8 mg/dL (8.8-10.5); CREATININE 8.4 mg/dL (0.60-1.30); MAGNESIUM 1.7 mg/dL (1.80-2.40); POTASSIUM 5.4 mmol/L (3.5-5.1)
[2022-03-29 16:29] VITALS: BP 153/87
[2022-03-29 17:06] LABS: GLUCOMETER DEV NAME(LOC) 5S.2B; GLUCOSE,POINT OF CARE 169 MG/DL (70-110)
[2022-03-29 17:06] LABS: GLUCOMETER DEV NAME(LOC) 5S.2B; GLUCOSE,POINT OF CARE 177 MG/DL (70-110)
[2022-03-29] MEDS: ATORVASTATIN CALCIUM 20 MG TABLET PO SCH (20:30)
[2022-03-29] MEDS: FUROSEMIDE 40 MG TABLET PO SCH (20:31)
[2022-03-29 20:46] LABS: GLUCOMETER DEV NAME(LOC) 5N.1C; GLUCOSE,POINT OF CARE 181 MG/DL (70-110)
[2022-03-29 20:49] VITALS: BP 145/87
[2022-03-30] VITALS (8 sets, daily range): BP systolic 138–159; BP diastolic 72–93
[2022-03-30] MEDS: MAGNESIUM HYDROXIDE SUSPENSION 30 ML UDCUP PO PRN (01:13)
[2022-03-30 06:21] LABS: GLUCOMETER DEV NAME(LOC) 5S.2B; GLUCOSE,POINT OF CARE 195 MG/DL (70-110)
[2022-03-30] MEDS: OxyCODONE HCL 5 MG IR TABLET PO PRN ×3 (06:26→07:45)
[2022-03-30] MEDS: INSULIN LISPRO 100 UNITS/ML SQ PRN ×3 (06:27→21:50)
[2022-03-30] MEDS: CHLOROTHIAZIDE SODIUM 500 MG VIAL IVP SCH ×2 (06:33→18:31)
[2022-03-30] MEDS: ONDANSETRON HCL 4 MG/2 ML VIAL IVP PRN (08:19)
[2022-03-30] MEDS: HEPARIN SODIUM,PORCINE 5,000 UNITS/ML VIAL SQ SCH ×2 (08:19→16:41)
[2022-03-30 09:56] LABS: GLUCOMETER DEV NAME(LOC) 5N.1C; GLUCOSE,POINT OF CARE 171 MG/DL (70-110)
[2022-03-30] MEDS: FUROSEMIDE 40 MG TABLET PO SCH (10:30)
[2022-03-30] MEDS: HydrALAZINE HCL 25 MG TABLET PO SCH ×2 (10:34→16:41)
[2022-03-30] MEDS: AmLODIPine BESYLATE 10 MG TABLET PO SCH (10:34)
[2022-03-30] MEDS: ASPIRIN 81 MG DR TABLET PO SCH (10:37)
[2022-03-30] MEDS: DOCUSATE SODIUM 100 MG CAPSULE PO SCH ×2 (10:37→20:48)
[2022-03-30] MEDS: FERROUS SULFATE 325 MG EC TABLET PO SCH (10:37)
[2022-03-30] MEDS: CARVEDILOL 6.25 MG TABLET PO SCH (10:37)
[2022-03-30] MEDS: PANTOPRAZOLE SODIUM 40 MG DR TABLET PO SCH (10:37)
[2022-03-30] MEDS: CALCITRIOL 0.25 MCG CAPSULE PO SCH (10:37)
[2022-03-30] MEDS: ISOSORBIDE DINITRATE 5 MG TABLET PO SCH ×3 (10:37→20:47)
[2022-03-30] MEDS ORDERED: BUME1TAB34 PO (11:15)
[2022-03-30] MEDS ORDERED: CARV6 PO (11:15)
[2022-03-30] MEDS ORDERED: SODI5POW3 PO (11:16)
[2022-03-30 12:11] LABS: GLUCOMETER DEV NAME(LOC) 5S.2B; GLUCOSE,POINT OF CARE 191 MG/DL (70-110)
[2022-03-30] MEDS: BUMETANIDE 0.25 MG/ML 4 ML VIAL IVP SCH ×2 (12:24→20:46)
[2022-03-30 12:46] LABS: BASOPHILS % (AUTO) 0.7 % (0.0-2.0); EOSINOPHILS % (AUTO) 0.9 % (1.0-6.0); HEMOGLOBIN 7.4 g/dL (13.5-17.5); LYMPHOCYTES # (AUTO) 0.6 K/uL (1.0-4.8); LYMPHOCYTES % (AUTO) 11.8 % (22.0-44.0); MEAN CORPUSCULAR HEMOGLOBIN 24.6 pg (26.0-34.0); MEAN CORPUSCULAR HGB CONC 32.1 G/dL (31.0-37.0); MEAN CORPUSCULAR VOLUME 77 fL (80-100); MONOCYTES # (AUTO) 0.6 K/uL (0.1-1.0); MONOCYTES % (AUTO) 10.2 % (2.0-9.0); NEUTROPHILS # (AUTO) 4.2 K/uL (1.8-7.7); NEUTROPHILS % (AUTO) 76.4 % (40.0-70.0); PLATELET COUNT (AUTO) 287 K/uL (150-450); RED BLOOD CELL COUNT(AUTO) 2.99 MIL/uL (4.50-5.90); RED CELL DISTRIBUTION WIDTH 17.2 % (11.5-14.5)
[2022-03-30 12:56] LABS: CALCIUM, TOTAL 7.8 mg/dL (8.8-10.5); CREATININE 8.41 mg/dL (0.60-1.30); POTASSIUM 5.5 mmol/L (3.5-5.1)
[2022-03-30] MEDS: SODIUM ZIRCONIUM CYCLOSILICATE 5 GM POWDER PACKET PO SCH (14:01)
[2022-03-30] MEDS: CARVEDILOL 12.5 MG TABLET PO SCH (20:47)
[2022-03-30] MEDS: ATORVASTATIN CALCIUM 20 MG TABLET PO SCH (20:47)
[2022-03-31] MEDS: OxyCODONE HCL 5 MG IR TABLET PO PRN ×3 (00:56→20:15)
[2022-03-31] MEDS: HEPARIN SODIUM,PORCINE 5,000 UNITS/ML VIAL SQ SCH ×3 (00:56→17:00)
[2022-03-31] MEDS: HydrALAZINE HCL 25 MG TABLET PO SCH ×3 (00:56→17:00)
[2022-03-31 05:13] VITALS: BP 134/64
[2022-03-31 05:47] LABS: GLUCOMETER DEV NAME(LOC) 5N.1C; GLUCOSE,POINT OF CARE 201 MG/DL (70-110)
[2022-03-31 05:47] LABS: GLUCOMETER DEV NAME(LOC) 5N.1C; GLUCOSE,POINT OF CARE 201 MG/DL (70-110)
[2022-03-31] MEDS: INSULIN LISPRO 100 UNITS/ML SQ PRN ×3 (06:55→20:18)
[2022-03-31 07:37] LABS: GLUCOMETER DEV NAME(LOC) 5N.1C; GLUCOSE,POINT OF CARE 188 MG/DL (70-110)
[2022-03-31 07:47] VITALS: BP 139/74
[2022-03-31 07:59] LABS: CALCIUM, TOTAL 7.5 mg/dL (8.8-10.5); CREATININE 8.61 mg/dL (0.60-1.30); PHOSPHORUS 6.4 mg/dL (2.5-4.9); POTASSIUM 5.1 mmol/L (3.5-5.1)
[2022-03-31] MEDS: DOCUSATE SODIUM 100 MG CAPSULE PO SCH ×2 (09:01→20:15)
[2022-03-31] MEDS: BUMETANIDE 0.25 MG/ML 4 ML VIAL IVP SCH ×2 (09:01→20:14)
[2022-03-31] MEDS: FERROUS SULFATE 325 MG EC TABLET PO SCH (09:01)
[2022-03-31] MEDS: ASPIRIN 81 MG DR TABLET PO SCH (09:01)
[2022-03-31] MEDS: CARVEDILOL 12.5 MG TABLET PO SCH ×2 (09:01→20:15)
[2022-03-31] MEDS: CALCITRIOL 0.25 MCG CAPSULE PO SCH (09:02)
[2022-03-31] MEDS: AmLODIPine BESYLATE 10 MG TABLET PO SCH (09:02)
[2022-03-31] MEDS: SODIUM ZIRCONIUM CYCLOSILICATE 5 GM POWDER PACKET PO SCH (09:02)
[2022-03-31] MEDS: PANTOPRAZOLE SODIUM 40 MG DR TABLET PO SCH (09:02)
[2022-03-31] MEDS: ISOSORBIDE DINITRATE 5 MG TABLET PO SCH ×3 (09:02→20:15)
[2022-03-31 11:33] VITALS: BP 138/68
[2022-03-31] MEDS ORDERED: SODIUM CHLORIDE 0.9% 250 ML IV ONE (13:27)
[2022-03-31] MEDS: SOD FERRIC GLUC COMPLX/SUCROSE 125 MG in SODIUM CHLORIDE 0.9% 100 ML IV SCH (14:21)
[2022-03-31] MEDS: ACETAMINOPHEN 325 MG TABLET PO PRN (14:21)
[2022-03-31 15:40] VITALS: BP 145/5
[2022-03-31] MEDS: ONDANSETRON HCL 4 MG/2 ML VIAL IVP PRN (20:14)
[2022-03-31] MEDS: ATORVASTATIN CALCIUM 20 MG TABLET PO SCH (20:15)
[2022-03-31 20:16] VITALS: BP 160/78
[2022-03-31] MEDS: HydrALAZINE HCL 20 MG/ML VIAL IVP PRN (20:16)
[2022-04-01] VITALS (11 sets, daily range): BP systolic 135–180; BP diastolic 66–88
[2022-04-01] MEDS: HydrALAZINE HCL 25 MG TABLET PO SCH ×3 (00:19→16:00)
[2022-04-01] MEDS: HEPARIN SODIUM,PORCINE 5,000 UNITS/ML VIAL SQ SCH ×3 (00:19→16:00)
[2022-04-01 01:01] LABS: GLUCOMETER DEV NAME(LOC) 5N.1C; GLUCOSE,POINT OF CARE 124 MG/DL (70-110)
[2022-04-01 01:01] LABS: GLUCOMETER DEV NAME(LOC) 5N.1C; GLUCOSE,POINT OF CARE 184 MG/DL (70-110)
[2022-04-01 01:01] LABS: GLUCOMETER DEV NAME(LOC) 5N.1C; GLUCOSE,POINT OF CARE 166 MG/DL (70-110)
[2022-04-01] MEDS: HydrALAZINE HCL 20 MG/ML VIAL IVP PRN ×2 (06:47→20:18)
[2022-04-01] MEDS: INSULIN LISPRO 100 UNITS/ML SQ PRN ×2 (06:48→20:22)
[2022-04-01] MEDS: ASPIRIN 81 MG DR TABLET PO SCH (07:49)
[2022-04-01] MEDS: SODIUM ZIRCONIUM CYCLOSILICATE 5 GM POWDER PACKET PO SCH (08:42)
[2022-04-01] MEDS: CARVEDILOL 12.5 MG TABLET PO SCH ×2 (08:44→20:18)
[2022-04-01] MEDS: ISOSORBIDE DINITRATE 5 MG TABLET PO SCH ×3 (08:44→20:18)
[2022-04-01] MEDS: CALCITRIOL 0.25 MCG CAPSULE PO SCH (08:44)
[2022-04-01] MEDS: AmLODIPine BESYLATE 10 MG TABLET PO SCH (08:44)
[2022-04-01] MEDS: CloNIDine HCL 0.1 MG TABLET PO PRN (08:44)
[2022-04-01] MEDS: PANTOPRAZOLE SODIUM 40 MG DR TABLET PO SCH (08:44)
[2022-04-01] MEDS: DOCUSATE SODIUM 100 MG CAPSULE PO SCH ×2 (08:44→20:18)
[2022-04-01] MEDS: BUMETANIDE 0.25 MG/ML 4 ML VIAL IVP SCH ×2 (08:45→20:18)
[2022-04-01] MEDS: CHLOROTHIAZIDE SODIUM 500 MG VIAL IVP SCH (08:46)
[2022-04-01 09:03] LABS: INR 1.1 (0.9-1.1); PROTHROMBIN TIME 11.3 SEC (9.4-11.6)
[2022-04-01] MEDS: ONDANSETRON HCL 4 MG/2 ML VIAL IVP PRN (11:37)
[2022-04-01] MEDS: SOD FERRIC GLUC COMPLX/SUCROSE 125 MG in SODIUM CHLORIDE 0.9% 100 ML IV SCH (12:32)
[2022-04-01] MEDS ORDERED: FentaNYL CITRATE PF 100 MCG/2 ML VIAL ONE (13:42)
[2022-04-01] MEDS ORDERED: MIDAZOLAM HCL 2 MG/2 ML VIAL ONE (13:42)
[2022-04-01] MEDS ORDERED: LIDOCAINE 1%/EPI 1:200,000/PF 10 ML VIAL ONE (13:42)
[2022-04-01] MEDS ORDERED: LIDOCAINE/PF 1% 30 ML VIAL ONE (13:43)
[2022-04-01] MEDS ORDERED: HEPARIN SODIUM,PORCINE 1,000 UNITS/ML 10 ML VIAL ONE (13:43)
[2022-04-01] MEDS ORDERED: IOHEXOL 300 MG/ML 50 ML VIAL ONE (14:33)
[2022-04-01] MEDS ORDERED: FentaNYL CITRATE PF 100 MCG/2 ML VIAL IVP ONE ×2 (17:00)
[2022-04-01] MEDS ORDERED: MIDAZOLAM HCL 2 MG/2 ML VIAL IVP ONE (17:00)
[2022-04-01] MEDS: FOLIC ACID/VIT B COMPLEX AND C TABLET PO SCH (18:13)
[2022-04-01 18:36] LABS: GLUCOMETER DEV NAME(LOC) 5N.1C; GLUCOSE,POINT OF CARE 156 MG/DL (70-110)
[2022-04-01 18:37] LABS: GLUCOMETER DEV NAME(LOC) 5N.1C; GLUCOSE,POINT OF CARE 156 MG/DL (70-110)
[2022-04-01 18:37] LABS: GLUCOMETER DEV NAME(LOC) 5N.1C; GLUCOSE,POINT OF CARE 150 MG/DL (70-110)
[2022-04-01 19:51] LABS: BASOPHILS % (AUTO) 0.5 % (0.0-2.0); EOSINOPHILS % (AUTO) 1.2 % (1.0-6.0); HEMATOCRIT 26.8 % (41-53); HEMOGLOBIN 8.7 g/dL (13.5-17.5); LYMPHOCYTES # (AUTO) 0.4 K/uL (1.0-4.8); LYMPHOCYTES % (AUTO) 5.9 % (22.0-44.0); MEAN CORPUSCULAR HEMOGLOBIN 25.2 pg (26.0-34.0); MEAN CORPUSCULAR HGB CONC 32.7 G/dL (31.0-37.0); MEAN CORPUSCULAR VOLUME 77 fL (80-100); MONOCYTES # (AUTO) 0.6 K/uL (0.1-1.0); MONOCYTES % (AUTO) 8.8 % (2.0-9.0); NEUTROPHILS # (AUTO) 5.3 K/uL (1.8-7.7); NEUTROPHILS % (AUTO) 83.6 % (40.0-70.0); PLATELET COUNT (AUTO) 372 K/uL (150-450); RED BLOOD CELL COUNT(AUTO) 3.47 MIL/uL (4.50-5.90); RED CELL DISTRIBUTION WIDTH 16.9 % (11.5-14.5)
[2022-04-01 20:04] LABS: INR 1.1 (0.9-1.1); PROTHROMBIN TIME 11.4 SEC (9.4-11.6)
[2022-04-01] MEDS: ATORVASTATIN CALCIUM 20 MG TABLET PO SCH (20:18)
[2022-04-02] VITALS (14 sets, daily range): BP systolic 133–162; BP diastolic 56–97
[2022-04-02] MEDS: HydrALAZINE HCL 25 MG TABLET PO SCH ×4 (01:01→23:15)
[2022-04-02] MEDS: HEPARIN SODIUM,PORCINE 5,000 UNITS/ML VIAL SQ SCH ×4 (01:01→23:15)
[2022-04-02 01:06] LABS: GLUCOMETER DEV NAME(LOC) 5N.1C; GLUCOSE,POINT OF CARE 156 MG/DL (70-110)
[2022-04-02] MEDS ORDERED: ALBUMIN HUMAN 25%-12.5GM/50ML IV BOTTLE IV ONE (06:56)
[2022-04-02] MEDS ORDERED: HEPARIN SODIUM,PORCINE 1,000 UNITS/ML VIAL IVP ONE ×2 (06:56→17:51)
[2022-04-02] MEDS: CALCITRIOL 0.25 MCG CAPSULE PO SCH (09:00)
[2022-04-02] MEDS: ASPIRIN 81 MG DR TABLET PO SCH (11:20)
[2022-04-02] MEDS: AmLODIPine BESYLATE 10 MG TABLET PO SCH (11:20)
[2022-04-02] MEDS: PANTOPRAZOLE SODIUM 40 MG DR TABLET PO SCH (11:20)
[2022-04-02] MEDS: DOCUSATE SODIUM 100 MG CAPSULE PO SCH ×2 (11:21→20:24)
[2022-04-02] MEDS: FOLIC ACID/VIT B COMPLEX AND C TABLET PO SCH (11:21)
[2022-04-02] MEDS: CARVEDILOL 12.5 MG TABLET PO SCH ×2 (11:21→20:21)
[2022-04-02] MEDS: ISOSORBIDE DINITRATE 5 MG TABLET PO SCH ×3 (11:21→20:21)
[2022-04-02] MEDS: BUMETANIDE 0.25 MG/ML 4 ML VIAL IVP SCH ×2 (11:22→20:23)
[2022-04-02] MEDS: EPOETIN ALFA 10,000 UNITS/ML VIAL SQ SCH (11:39)
[2022-04-02] MEDS: INSULIN LISPRO 100 UNITS/ML SQ PRN ×2 (11:49→20:38)
[2022-04-02] MEDS: SOD FERRIC GLUC COMPLX/SUCROSE 125 MG in SODIUM CHLORIDE 0.9% 100 ML IV SCH (13:00)
[2022-04-02] MEDS: SODIUM ZIRCONIUM CYCLOSILICATE 5 GM POWDER PACKET PO SCH (13:47)
[2022-04-02] MEDS ORDERED: HEPARIN SODIUM,PORCINE 1,000 UNITS/ML VIAL IVCATH ONE ×2 (14:00)
[2022-04-02] MEDS: ATORVASTATIN CALCIUM 20 MG TABLET PO SCH (20:21)
[2022-04-03] MEDS: ACETAMINOPHEN 325 MG TABLET PO PRN (03:42)
[2022-04-03 04:00] VITALS: BP 150/90
[2022-04-03] MEDS: INSULIN LISPRO 100 UNITS/ML SQ PRN ×4 (05:21→21:34)
[2022-04-03 05:36] LABS: GLUCOMETER DEV NAME(LOC) 5S.2B; GLUCOSE,POINT OF CARE 137 MG/DL (70-110)
[2022-04-03 06:06] LABS: GLUCOMETER DEV NAME(LOC) 5N.1C; GLUCOSE,POINT OF CARE 229 MG/DL (70-110)
[2022-04-03 06:06] LABS: GLUCOMETER DEV NAME(LOC) 5N.1C; GLUCOSE,POINT OF CARE 131 MG/DL (70-110)
[2022-04-03 06:06] LABS: GLUCOMETER DEV NAME(LOC) 5N.1C; GLUCOSE,POINT OF CARE 174 MG/DL (70-110)
[2022-04-03 06:48] LABS: BASOPHILS % (AUTO) 0.9 % (0.0-2.0); EOSINOPHILS % (AUTO) 2.1 % (1.0-6.0); HEMATOCRIT 22.7 % (41-53); HEMOGLOBIN 7.6 g/dL (13.5-17.5); LYMPHOCYTES # (AUTO) 0.5 K/uL (1.0-4.8); LYMPHOCYTES % (AUTO) 8.4 % (22.0-44.0); MEAN CORPUSCULAR HGB CONC 33.6 G/dL (31.0-37.0); MEAN CORPUSCULAR VOLUME 81 fL (80-100); MONOCYTES # (AUTO) 0.7 K/uL (0.1-1.0); NEUTROPHILS # (AUTO) 4.3 K/uL (1.8-7.7); NEUTROPHILS % (AUTO) 75.6 % (40.0-70.0); PLATELET COUNT (AUTO) 301 K/uL (150-450); RED BLOOD CELL COUNT(AUTO) 2.82 MIL/uL (4.50-5.90); RED CELL DISTRIBUTION WIDTH 16.5 % (11.5-14.5)
[2022-04-03 07:39] LABS: CREATININE 6.17 mg/dL (0.60-1.30); MAGNESIUM 1.9 mg/dL (1.80-2.40); PHOSPHORUS 5.6 mg/dL (2.5-4.9)
[2022-04-03] MEDS: ASPIRIN 81 MG DR TABLET PO SCH (11:14)
[2022-04-03] MEDS: CALCITRIOL 0.25 MCG CAPSULE PO SCH (11:14)
[2022-04-03] MEDS: FOLIC ACID/VIT B COMPLEX AND C TABLET PO SCH (11:14)
[2022-04-03] MEDS: HydrALAZINE HCL 25 MG TABLET PO SCH ×2 (11:15→15:20)
[2022-04-03] MEDS: CARVEDILOL 12.5 MG TABLET PO SCH ×2 (11:15→21:34)
[2022-04-03] MEDS: DOCUSATE SODIUM 100 MG CAPSULE PO SCH ×2 (11:15→21:00)
[2022-04-03] MEDS: PANTOPRAZOLE SODIUM 40 MG DR TABLET PO SCH (11:15)
[2022-04-03] MEDS: ISOSORBIDE DINITRATE 5 MG TABLET PO SCH ×3 (11:15→21:00)
[2022-04-03] MEDS: BUMETANIDE 0.25 MG/ML 4 ML VIAL IVP SCH ×2 (11:16→21:35)
[2022-04-03] MEDS: SODIUM ZIRCONIUM CYCLOSILICATE 5 GM POWDER PACKET PO SCH (11:16)
[2022-04-03] MEDS: HEPARIN SODIUM,PORCINE 5,000 UNITS/ML VIAL SQ SCH ×2 (11:16→15:16)
[2022-04-03] MEDS: AmLODIPine BESYLATE 10 MG TABLET PO SCH (11:20)
[2022-04-03 11:26] LABS: GLUCOMETER DEV NAME(LOC) 5N.1C; GLUCOSE,POINT OF CARE 240 MG/DL (70-110)
[2022-04-03 11:54] VITALS: BP 139/87
[2022-04-03] MEDS: SOD FERRIC GLUC COMPLX/SUCROSE 125 MG in SODIUM CHLORIDE 0.9% 100 ML IV SCH (13:00)
[2022-04-03] MEDS: OxyCODONE HCL 5 MG IR TABLET PO PRN (15:21)
[2022-04-03 16:27] VITALS: BP 146/75
[2022-04-03 18:56] LABS: GLUCOMETER DEV NAME(LOC) 5N.1C; GLUCOSE,POINT OF CARE 246 MG/DL (70-110)
[2022-04-03 20:55] VITALS: BP 157/88
[2022-04-03] MEDS: ATORVASTATIN CALCIUM 20 MG TABLET PO SCH (21:00)
[2022-04-03] MEDS: ONDANSETRON HCL 4 MG/2 ML VIAL IVP PRN (21:36)
[2022-04-03 22:45] LABS: GLUCOMETER DEV NAME(LOC) 5N.1C; GLUCOSE,POINT OF CARE 202 MG/DL (70-110)
[2022-04-04] VITALS (15 sets, daily range): BP systolic 126–171; BP diastolic 65–87
[2022-04-04] MEDS: HydrALAZINE HCL 25 MG TABLET PO SCH ×2 (00:49→08:00)
[2022-04-04] MEDS: HEPARIN SODIUM,PORCINE 5,000 UNITS/ML VIAL SQ SCH ×4 (00:49→23:29)
[2022-04-04] MEDS: INSULIN LISPRO 100 UNITS/ML SQ PRN ×4 (06:56→21:12)
[2022-04-04] MEDS: SODIUM ZIRCONIUM CYCLOSILICATE 5 GM POWDER PACKET PO SCH (09:00)
[2022-04-04] MEDS: ISOSORBIDE DINITRATE 5 MG TABLET PO SCH ×3 (09:00→20:56)
[2022-04-04] MEDS: BUMETANIDE 0.25 MG/ML 4 ML VIAL IVP SCH ×2 (09:00→20:55)
[2022-04-04] MEDS: CARVEDILOL 12.5 MG TABLET PO SCH ×2 (09:00→20:55)
[2022-04-04] MEDS: PANTOPRAZOLE SODIUM 40 MG DR TABLET PO SCH (09:00)
[2022-04-04] MEDS: ASPIRIN 81 MG DR TABLET PO SCH (09:00)
[2022-04-04] MEDS: AmLODIPine BESYLATE 10 MG TABLET PO SCH (09:00)
[2022-04-04] MEDS: CALCITRIOL 0.25 MCG CAPSULE PO SCH (09:00)
[2022-04-04] MEDS: EPOETIN ALFA 10,000 UNITS/ML VIAL SQ SCH (09:00)
[2022-04-04] MEDS: FOLIC ACID/VIT B COMPLEX AND C TABLET PO SCH (09:00)
[2022-04-04] MEDS: DOCUSATE SODIUM 100 MG CAPSULE PO SCH ×3 (09:00→21:00)
[2022-04-04] MEDS ORDERED: SODIUM CHLORIDE 0.9% 2,000 ML ONE (11:10)
[2022-04-04] MEDS ORDERED: HEPARIN SODIUM,PORCINE 1,000 UNITS/ML VIAL IVCATH ONE ×2 (14:15)
[2022-04-04] MEDS ORDERED: SODIUM CHLORIDE 0.9% 500 ML IV ONE (15:06)
[2022-04-04] MEDS: SOD FERRIC GLUC COMPLX/SUCROSE 125 MG in SODIUM CHLORIDE 0.9% 100 ML IV SCH (15:08)
[2022-04-04] MEDS: HydrALAZINE HCL 20 MG/ML VIAL IVP PRN (15:47)
[2022-04-04 19:51] LABS: GLUCOMETER DEV NAME(LOC) 6N.1; GLUCOSE,POINT OF CARE 231 MG/DL (70-110)
[2022-04-04] MEDS: ATORVASTATIN CALCIUM 20 MG TABLET PO SCH (20:56)
[2022-04-04] MEDS: HydrALAZINE HCL 50 MG TABLET PO SCH (20:56)
[2022-04-04 21:47] LABS: GLUCOMETER DEV NAME(LOC) 5N.1C; GLUCOSE,POINT OF CARE 146 MG/DL (70-110)
[2022-04-05 03:26] LABS: GLUCOMETER DEV NAME(LOC) 6N.1; GLUCOSE,POINT OF CARE 211 MG/DL (70-110)
[2022-04-05 07:06] LABS: GLUCOMETER DEV NAME(LOC) 6N.1; GLUCOSE,POINT OF CARE 186 MG/DL (70-110)
[2022-04-05 08:32] VITALS: BP 148/76
[2022-04-05] MEDS: ASPIRIN 81 MG DR TABLET PO SCH (09:28)
[2022-04-05] MEDS: CALCITRIOL 0.25 MCG CAPSULE PO SCH (09:28)
[2022-04-05] MEDS: DOCUSATE SODIUM 100 MG CAPSULE PO SCH ×2 (09:29→22:04)
[2022-04-05] MEDS: PANTOPRAZOLE SODIUM 40 MG DR TABLET PO SCH (09:30)
[2022-04-05] MEDS: FOLIC ACID/VIT B COMPLEX AND C TABLET PO SCH (09:30)
[2022-04-05] MEDS: CARVEDILOL 12.5 MG TABLET PO SCH ×2 (09:30→22:04)
[2022-04-05] MEDS: ISOSORBIDE DINITRATE 5 MG TABLET PO SCH ×4 (09:30→22:03)
[2022-04-05] MEDS: HydrALAZINE HCL 50 MG TABLET PO SCH ×2 (09:30→22:03)
[2022-04-05] MEDS: AmLODIPine BESYLATE 10 MG TABLET PO SCH (09:31)
[2022-04-05] MEDS: HEPARIN SODIUM,PORCINE 5,000 UNITS/ML VIAL SQ SCH ×3 (09:32→22:05)
[2022-04-05] MEDS: SODIUM ZIRCONIUM CYCLOSILICATE 5 GM POWDER PACKET PO SCH (09:37)
[2022-04-05] MEDS: BUMETANIDE 0.25 MG/ML 4 ML VIAL IVP SCH ×2 (09:38→22:04)
[2022-04-05 11:02] LABS: GLUCOMETER DEV NAME(LOC) 6N.1; GLUCOSE,POINT OF CARE 230 MG/DL (70-110)
[2022-04-05] MEDS: SOD FERRIC GLUC COMPLX/SUCROSE 125 MG in SODIUM CHLORIDE 0.9% 100 ML IV SCH (13:00)
[2022-04-05] MEDS: INSULIN LISPRO 100 UNITS/ML SQ PRN ×2 (17:24→22:28)
[2022-04-05 19:55] VITALS: BP 138/79
[2022-04-05 20:13] LABS: GLUCOMETER DEV NAME(LOC) 6N.2B; GLUCOSE,POINT OF CARE 265 MG/DL (70-110)
[2022-04-05] MEDS: ATORVASTATIN CALCIUM 20 MG TABLET PO SCH (22:04)
[2022-04-05 22:46] LABS: GLUCOMETER DEV NAME(LOC) 6N.2B; GLUCOSE,POINT OF CARE 198 MG/DL (70-110)
[2022-04-05 23:40] VITALS: BP 167/98
[2022-04-05] MEDS: ACETAMINOPHEN 325 MG TABLET PO PRN (23:41)
[2022-04-06 04:05] VITALS: BP 130/77
[2022-04-06] MEDS: INSULIN LISPRO 100 UNITS/ML SQ PRN ×3 (06:32→20:27)
[2022-04-06] MEDS: HEPARIN SODIUM,PORCINE 5,000 UNITS/ML VIAL SQ SCH ×2 (08:00→16:56)
[2022-04-06 08:41] VITALS: BP 135/63
[2022-04-06 09:43] LABS: GLUCOMETER DEV NAME(LOC) 6N.2B; GLUCOSE,POINT OF CARE 174 MG/DL (70-110)
[2022-04-06] MEDS: SODIUM ZIRCONIUM CYCLOSILICATE 5 GM POWDER PACKET PO SCH (10:16)
[2022-04-06] MEDS: FOLIC ACID/VIT B COMPLEX AND C TABLET PO SCH (10:19)
[2022-04-06] MEDS: HydrALAZINE HCL 50 MG TABLET PO SCH ×2 (10:19→20:25)
[2022-04-06] MEDS: ISOSORBIDE DINITRATE 5 MG TABLET PO SCH ×3 (10:19→20:26)
[2022-04-06] MEDS: CALCITRIOL 0.25 MCG CAPSULE PO SCH (10:19)
[2022-04-06] MEDS: AmLODIPine BESYLATE 10 MG TABLET PO SCH (10:20)
[2022-04-06] MEDS: CARVEDILOL 12.5 MG TABLET PO SCH ×2 (10:22→20:25)
[2022-04-06] MEDS: BUMETANIDE 0.25 MG/ML 4 ML VIAL IVP SCH ×2 (10:22→20:26)
[2022-04-06] MEDS: PANTOPRAZOLE SODIUM 40 MG DR TABLET PO SCH (10:22)
[2022-04-06] MEDS: DOCUSATE SODIUM 100 MG CAPSULE PO SCH ×2 (10:22→20:25)
[2022-04-06] MEDS: EPOETIN ALFA 10,000 UNITS/ML VIAL SQ SCH (10:29)
[2022-04-06] MEDS: ASPIRIN 81 MG DR TABLET PO SCH (10:36)
[2022-04-06] MEDS ORDERED: SODIUM CHLORIDE 0.9% 500 ML IV ONE (13:12)
[2022-04-06] MEDS: SOD FERRIC GLUC COMPLX/SUCROSE 125 MG in SODIUM CHLORIDE 0.9% 100 ML IV SCH (13:21)
[2022-04-06 14:07] LABS: GLUCOMETER DEV NAME(LOC) 6N.1; GLUCOSE,POINT OF CARE 206 MG/DL (70-110)
[2022-04-06 16:03] VITALS: BP 133/70
[2022-04-06 17:37] LABS: GLUCOMETER DEV NAME(LOC) 6N.1; GLUCOSE,POINT OF CARE 119 MG/DL (70-110)
[2022-04-06 20:21] VITALS: BP 137/80
[2022-04-06] MEDS: ATORVASTATIN CALCIUM 20 MG TABLET PO SCH (20:25)
[2022-04-07] VITALS (12 sets, daily range): BP systolic 119–154; BP diastolic 60–76
[2022-04-07] MEDS: HEPARIN SODIUM,PORCINE 5,000 UNITS/ML VIAL SQ SCH ×3 (00:21→16:00)
[2022-04-07 03:54] LABS: GLUCOMETER DEV NAME(LOC) 6N.2B; GLUCOSE,POINT OF CARE 180 MG/DL (70-110)
[2022-04-07] MEDS: INSULIN LISPRO 100 UNITS/ML SQ PRN (06:00)
[2022-04-07] MEDS: DOCUSATE SODIUM 100 MG CAPSULE PO SCH ×2 (09:00→09:57)
[2022-04-07] MEDS: BUMETANIDE 0.25 MG/ML 4 ML VIAL IVP SCH (09:56)
[2022-04-07] MEDS: ASPIRIN 81 MG DR TABLET PO SCH (09:58)
[2022-04-07] MEDS: ISOSORBIDE DINITRATE 5 MG TABLET PO SCH ×3 (09:58→16:07)
[2022-04-07] MEDS: SODIUM ZIRCONIUM CYCLOSILICATE 5 GM POWDER PACKET PO SCH (10:00)
[2022-04-07] MEDS: FOLIC ACID/VIT B COMPLEX AND C TABLET PO SCH (10:00)
[2022-04-07] MEDS: PANTOPRAZOLE SODIUM 40 MG DR TABLET PO SCH (10:00)
[2022-04-07] MEDS: CALCITRIOL 0.25 MCG CAPSULE PO SCH (10:01)
[2022-04-07] MEDS ORDERED: SODIUM CHLORIDE 0.9% 1,000 ML ONE ×2 (10:42)
[2022-04-07] MEDS ORDERED: ISOS5 PO (11:00)
[2022-04-07] MEDS ORDERED: SYRI-590 SQ (11:00)
[2022-04-07] MEDS ORDERED: FOLI0.8T2 PO (11:00)
[2022-04-07] MEDS ORDERED: CARV12 PO (11:00)
[2022-04-07] MEDS ORDERED: [UNRECOGNIZED DRUG - CODE] MC (11:00)
[2022-04-07] MEDS ORDERED: CALC0.2521 PO (11:00)
[2022-04-07] MEDS ORDERED: SODI5POW3 PO (11:00)
[2022-04-07] MEDS ORDERED: HYDR-4174 PO (11:00)
[2022-04-07] MEDS ORDERED: HEPARIN SODIUM,PORCINE 1,000 UNITS/ML VIAL IVCATH ONE ×2 (13:00)
[2022-04-07] MEDS: SOD FERRIC GLUC COMPLX/SUCROSE 125 MG in SODIUM CHLORIDE 0.9% 100 ML IV SCH (13:00)
[2022-04-07 15:16] LABS: GLUCOMETER DEV NAME(LOC) 6N.1; GLUCOSE,POINT OF CARE 144 MG/DL (70-110)
[2022-04-07] MEDS: HydrALAZINE HCL 50 MG TABLET PO SCH (16:06)
[2022-04-07] MEDS: CARVEDILOL 12.5 MG TABLET PO SCH (16:06)
[2022-04-07] MEDS: AmLODIPine BESYLATE 10 MG TABLET PO SCH (16:07)
[2022-04-07] MEDS ORDERED: HEPARIN SODIUM,PORCINE 1,000 UNITS/ML VIAL IVP ONE (18:14)
== END 2022-04-07 18:15 | disposition home or self-care (01) | DRG 180 ==
LOC: EMS 13:34 → 5S 17:09 → 6S 04-04 16:45
PROVIDERS: ADMIT Internal Medicine; ATTEND Internal Medicine
PROC: 03180KD Bypass Left Brachial Artery to Upper Arm Vein with Nonautologous Tissue Substitute, Open Approach (ICD-10-PCS; principal; 2022-03-27 09:05)
PROC: 5A1D70Z Performance of Urinary Filtration, Intermittent, Less than 6 Hours Per Day (ICD-10-PCS; 2022-03-31)
PROC: 0JH63XZ Insertion of Tunneled Vascular Access Device into Chest Subcutaneous Tissue and Fascia, Percutaneous Approach (ICD-10-PCS; 2022-04-01)
PROC: 02H633Z Insertion of Infusion Device into Right Atrium, Percutaneous Approach (ICD-10-PCS; 2022-04-01)
PROC: B5181ZA Fluoroscopy of Superior Vena Cava using Low Osmolar Contrast, Guidance (ICD-10-PCS; 2022-04-01)
PROC: B548ZZA Ultrasonography of Superior Vena Cava, Guidance (ICD-10-PCS; 2022-04-01)
PROC: 5A1D70Z Performance of Urinary Filtration, Intermittent, Less than 6 Hours Per Day (ICD-10-PCS; 2022-04-01)
PROC: 5A1D70Z Performance of Urinary Filtration, Intermittent, Less than 6 Hours Per Day (ICD-10-PCS; 2022-04-02)
PROC: 5A1D70Z Performance of Urinary Filtration, Intermittent, Less than 6 Hours Per Day (ICD-10-PCS; 2022-04-03)
DX: I13.2 Hypertensive heart and chronic kidney disease with heart failure and with stage 5 chronic kidney disease, or end stage renal disease (principal); I42.9 Cardiomyopathy, unspecified; N17.9 Acute kidney failure, unspecified; D63.1 Anemia in chronic kidney disease; E87.1 Hypo-osmolality and hyponatremia; E11.22 Type 2 diabetes mellitus with diabetic chronic kidney disease; E11.319 Type 2 diabetes mellitus with unspecified diabetic retinopathy without macular edema; I50.41 Acute combined systolic (congestive) and diastolic (congestive) heart failure; N18.6 End stage renal disease; E87.5 Hyperkalemia; N50.89 Other specified disorders of the male genital organs; E11.65 Type 2 diabetes mellitus with hyperglycemia; I16.0 Hypertensive urgency; E78.5 Hyperlipidemia, unspecified; Z20.822 Contact with and (suspected) exposure to COVID-19; Z99.2 Dependence on renal dialysis; Z79.899 Other long term (current) drug therapy; Z79.4 Long term (current) use of insulin; Z91.199 Patient's noncompliance with other medical treatment and regimen due to unspecified reason
CPT/HCPCS: 36245; 36561; 71046; 76000; 76770; 76870; 76937; 80048; 80053; 81001; 81050; 82570; 82575; 82728; 82962; 83540; 83550; 83735; 83880; 83970; 84100; 84156; 84166; 84300; 84484; 84540; 85025; 85610; 85730; 87340; 90935; 93005; 93306; 93970; 99285; J0360; J0690; J0885; J1205; J1644; J1940; J2250; J2405; J2704; J2916; J3010; J3370; J3490; J7030; J7040; J7050; P9047; Q9967; 36415-L1; 36415-TC; C1716; Z7610

== ENCOUNTER 2022-04-16 11:21 | Emergency (ER) | payer OTHER ==
[~2022-04-16] VITALS: Ht 175.3 cm; Wt 79.5 kg
[~2022-04-16 11:21] MED LIST changes: +BUME1TAB34 PO; +CALC0.2521 PO; +CARV12 PO; +FOLI0.8T2 PO; +HYDR-4174 PO; -INSU100I26 SQ; +ISOS5 PO; +SODI5POW3 PO; +SYRI-590 SQ; +[UNRECOGNIZED DRUG - CODE] MC
[2022-04-16 14:41] LABS: BASOPHILS % (AUTO) 0.4 % (0.0-2.0); EOSINOPHILS % (AUTO) 0 % (1.0-6.0); HEMATOCRIT 29.3 % (41-53); HEMOGLOBIN 9.2 g/dL (13.5-17.5); LYMPHOCYTES # (AUTO) 0.3 K/uL (1.0-4.8); LYMPHOCYTES % (AUTO) 3.2 % (22.0-44.0); MEAN CORPUSCULAR HEMOGLOBIN 24.9 pg (26.0-34.0); MEAN CORPUSCULAR HGB CONC 31.4 G/dL (31.0-37.0); MEAN CORPUSCULAR VOLUME 79 fL (80-100); MONOCYTES # (AUTO) 0.5 K/uL (0.1-1.0); MONOCYTES % (AUTO) 4.8 % (2.0-9.0); NEUTROPHILS # (AUTO) 9.2 K/uL (1.8-7.7); PLATELET COUNT (AUTO) 370 K/uL (150-450); RED BLOOD CELL COUNT(AUTO) 3.69 MIL/uL (4.50-5.90); RED CELL DISTRIBUTION WIDTH 17.9 % (11.5-14.5)
[2022-04-16 14:43] LABS: NEUTROPHILS % (AUTO) 91.6 % (40.0-70.0)
[2022-04-16] MEDS ORDERED: METOCLOPRAMIDE HCL 5 MG/ML 2 ML VIAL IVP ONE ×2 (14:45→19:00)
[2022-04-16 14:52] LABS: CALCIUM, TOTAL 8.2 mg/dL (8.8-10.5); CREATININE 5.39 mg/dL (0.60-1.30); POTASSIUM 4.4 mmol/L (3.5-5.1)
[2022-04-16 14:56] LABS: ALBUMIN 2.4 g/dL (3.4-5.0); BILIRUBIN,TOTAL 0.5 mg/dL (0.1-1.0); MAGNESIUM 2.1 mg/dL (1.80-2.40); PHOSPHORUS 4.2 mg/dL (2.5-4.9)
[2022-04-16] MEDS ORDERED: AmLODIPine BESYLATE 10 MG TABLET PO ONE (15:45)
[2022-04-16] MEDS ORDERED: SODIUM CHLORIDE 0.9% 500 ML IV ONE (18:15)
[2022-04-16 20:23] VITALS: BP 182/86
== END 2022-04-16 20:29 | disposition home or self-care (01) ==
LOC: EMS 12:54
DX: R11.2 Nausea with vomiting, unspecified (principal); E11.22 Type 2 diabetes mellitus with diabetic chronic kidney disease; I13.2 Hypertensive heart and chronic kidney disease with heart failure and with stage 5 chronic kidney disease, or end stage renal disease; N18.6 End stage renal disease; Z99.2 Dependence on renal dialysis; Z98.890 Other specified postprocedural states
CPT/HCPCS: 99285; 74176; 96374; 76705; 71045; 96361; 80053; 83690; 83735; 84100; 84484; 85025; 36415; 93005; 96376; J2765; J7040; 96375

== ENCOUNTER 2022-07-06 08:41 | Emergency (ER) | payer OTHER | END 2022-07-06 09:11 | disposition left against medical advice (07) | LOC: EMS 08:44 | DX: Z53.21 Procedure and treatment not carried out due to patient leaving prior to being seen by health care provider (principal) ==

== ENCOUNTER 2023-03-11 10:16 | Emergency (ER) | payer OTHER ==
[~2023-03-11] VITALS: Ht 180.3 cm; Wt 70.5 kg
[2023-03-11 10:21] VITALS: TEMP 100.3
[2023-03-11 10:40] LABS: COVID AG,FIA SOURCE NASAL SWAB
[2023-03-11] MEDS ORDERED: ACETAMINOPHEN 500 MG TABLET PO ONE (10:45)
[2023-03-11 10:50] LABS: BASOPHILS % (AUTO) 0.5 % (0.0-2.0); EOSINOPHILS % (AUTO) 0.1 % (1.0-6.0); HEMATOCRIT 33.8 % (41-53); HEMOGLOBIN 11.1 g/dL (13.5-17.5); LYMPHOCYTES # (AUTO) 0.4 K/uL (1.0-4.8); LYMPHOCYTES % (AUTO) 4.6 % (22.0-44.0); MEAN CORPUSCULAR HEMOGLOBIN 28.1 pg (26.0-34.0); MEAN CORPUSCULAR HGB CONC 32.8 G/dL (31.0-37.0); MEAN CORPUSCULAR VOLUME 86 fL (80-100); MONOCYTES # (AUTO) 1.1 K/uL (0.1-1.0); MONOCYTES % (AUTO) 11.6 % (2.0-9.0); NEUTROPHILS # (AUTO) 7.8 K/uL (1.8-7.7); NEUTROPHILS % (AUTO) 83.2 % (40.0-70.0); PLATELET COUNT (AUTO) 178 K/uL (150-450); RED BLOOD CELL COUNT(AUTO) 3.94 MIL/uL (4.50-5.90); RED CELL DISTRIBUTION WIDTH 19.5 % (11.5-14.5); WHITE BLOOD COUNT (AUTO) 9.3 K/uL (4.5-11.0)
[2023-03-11 10:59] LABS: CALCIUM, TOTAL 8.5 mg/dL (8.8-10.5); CREATININE 9.03 mg/dL (0.60-1.30); POTASSIUM 4.2 mmol/L (3.5-5.1)
[2023-03-11 11:04] LABS: INFLUENZA TYPE A NEGATIVE FOR TYPE A (NEGATIVE); INFLUENZA TYPE B NEGATIVE FOR TYPE B (NEGATIVE)
[2023-03-11 11:07] LABS: SARS-COV2 (COVID) ANTIGEN,FIA Positive (Negative)
[2023-03-11 11:27] VITALS: BP 170/96; PULSE 74; RESP 20
== END 2023-03-11 14:14 | disposition home or self-care (01) ==
LOC: EMS 10:29
DX: U07.1 COVID-19 (principal); E11.22 Type 2 diabetes mellitus with diabetic chronic kidney disease; I13.2 Hypertensive heart and chronic kidney disease with heart failure and with stage 5 chronic kidney disease, or end stage renal disease; N18.6 End stage renal disease; Z99.2 Dependence on renal dialysis; Z98.890 Other specified postprocedural states
CPT/HCPCS: 71045; 80048; 82962; 85025; 87804; 99284; 36415-L1; 36415-TC

== ENCOUNTER 2024-02-01 06:55 | Emergency (ER) | payer OTHER ==
[~2024-02-01 06:55] MED LIST changes: -AMLO-258 PO; -BUME1TAB34 PO; +BUME1TAB50 PO; -FOLI0.8T2 PO; +FOLI0.8T54 PO; -HYDR-4174 PO; +HYDR50TA37 PO; +NIFE-129 PO; +SACU1TAB PO; +SEVE800T7 PO; -SODI5POW3 PO
== END 2024-02-01 07:45 | disposition home or self-care (01) ==
LOC: EMS 06:55
DX: R10.9 Unspecified abdominal pain (principal); I13.2 Hypertensive heart and chronic kidney disease with heart failure and with stage 5 chronic kidney disease, or end stage renal disease; E11.22 Type 2 diabetes mellitus with diabetic chronic kidney disease; N18.6 End stage renal disease; I50.20 Unspecified systolic (congestive) heart failure; Z79.82 Long term (current) use of aspirin; Z99.2 Dependence on renal dialysis
CPT/HCPCS: 99283; Z7502

== ENCOUNTER 2024-02-14 08:14 | Emergency (ER) | payer OTHER ==
[~2024-02-14] VITALS: Ht 177.8 cm; Wt 77.3 kg
[2024-02-14 09:13] LABS: BASOPHILS % (AUTO) 1.2 % (0.0-2.0); EOSINOPHILS % (AUTO) 1.6 % (1.0-6.0); HEMATOCRIT 32.5 % (41-53); HEMOGLOBIN 10.5 g/dL (13.5-17.5); LYMPHOCYTES # (AUTO) 0.9 K/uL (1.0-4.8); LYMPHOCYTES % (AUTO) 16.2 % (22.0-44.0); MEAN CORPUSCULAR HEMOGLOBIN 26.6 pg (26.0-34.0); MEAN CORPUSCULAR HGB CONC 32.4 G/dL (31.0-37.0); MEAN CORPUSCULAR VOLUME 82 fL (80-100); MONOCYTES # (AUTO) 0.5 K/uL (0.1-1.0); MONOCYTES % (AUTO) 8.5 % (2.0-9.0); NEUTROPHILS # (AUTO) 4.1 K/uL (1.8-7.7); NEUTROPHILS % (AUTO) 72.5 % (40.0-70.0); PLATELET COUNT (AUTO) 200 K/uL (150-450); RED BLOOD CELL COUNT(AUTO) 3.97 MIL/uL (4.50-5.90); RED CELL DISTRIBUTION WIDTH 18.9 % (11.5-14.5); WHITE BLOOD COUNT (AUTO) 5.7 K/uL (4.5-11.0)
[2024-02-14 09:22] LABS: CREATININE 9.31 mg/dL (0.60-1.30); POTASSIUM 4.9 mmol/L (3.5-5.1)
[2024-02-14 09:27] LABS: ALBUMIN 3.1 g/dL (3.4-5.0); BILIRUBIN,DIRECT 0.2 mg/dL (0.00-0.20); BILIRUBIN,TOTAL 0.6 mg/dL (0.1-1.0); TOTAL PROTEIN, SERUM 6.6 g/dL (6.4-8.2)
[2024-02-14 09:28] LABS: TROPONIN I-HIGH SENSITIVITY 47 ng/L (<76)
[2024-02-14 14:10] VITALS: BP 177/89; PULSE 70; RESP 16; TEMP 98; O2SAT 96
== END 2024-02-14 15:18 | disposition home or self-care (01) ==
LOC: EMS 08:14
DX: I13.2 Hypertensive heart and chronic kidney disease with heart failure and with stage 5 chronic kidney disease, or end stage renal disease (principal); E11.22 Type 2 diabetes mellitus with diabetic chronic kidney disease; N17.9 Acute kidney failure, unspecified; I50.9 Heart failure, unspecified; N18.6 End stage renal disease; Z79.82 Long term (current) use of aspirin; Z99.2 Dependence on renal dialysis
CPT/HCPCS: 80048; 80076; 83690; 84484; 85025; 93005; 99284

== ENCOUNTER 2024-05-25 22:00 | Inpatient (IN) | payer OTHER ==
[~2024-05-25] VITALS: Ht 180.3 cm; Wt 59.0 kg
[~2024-05-25 22:00] MED LIST changes: +ONDA-104 PO
[2024-05-25] MEDS: METOCLOPRAMIDE HCL 5 MG/ML 2 ML VIAL IVP ONE (23:38)
[2024-05-25] MEDS: MORPHINE SULFATE 2 MG/ML SYRINGE IVP ONE (23:38)
[2024-05-26] MEDS ORDERED: ALBUTEROL SULFATE 2.5 MG/0.5 ML NEB SOLUTION NEB PRN
[2024-05-26] MEDS ORDERED: HydrALAZINE HCL 20 MG/ML VIAL IVP PRN
[2024-05-26] MEDS: HEPARIN SODIUM,PORCINE 5,000 UNITS/ML VIAL SQ SCH
[2024-05-26] MEDS: NITROGLYCERIN 2% (1 GM=INCH) OINTMENT PACKET TP SCH
[2024-05-26] MEDS ORDERED: ONDANSETRON HCL 4 MG/2 ML VIAL IVP PRN
[2024-05-26] MEDS ORDERED: ONDANSETRON 4 MG TABLET PO PRN
[2024-05-26] MEDS ORDERED: IPRATROPIUM BROMIDE 0.5 MG/2.5 ML NEB SOLUTION NEB PRN
[2024-05-26] MEDS ORDERED: ACETAMINOPHEN 325 MG TABLET PO PRN
[2024-05-26] MEDS: LABETALOL HCL 5 MG/ML 20 ML VIAL IVP ONE (00:08)
[2024-05-26] MEDS: HydrALAZINE HCL 25 MG TABLET PO SCH (00:33)
[2024-05-26] MEDS: CARVEDILOL 6.25 MG TABLET PO SCH (00:33)
[2024-05-26 00:44] LABS: BASOPHILS % (AUTO) 0.8 % (0.0-2.0); EOSINOPHILS % (AUTO) 0.2 % (1.0-6.0); HEMATOCRIT 40.8 % (41-53); HEMOGLOBIN 13.2 g/dL (13.5-17.5); LYMPHOCYTES # (AUTO) 0.5 K/uL (1.0-4.8); LYMPHOCYTES % (AUTO) 6.5 % (22.0-44.0); MEAN CORPUSCULAR HEMOGLOBIN 25.9 pg (26.0-34.0); MEAN CORPUSCULAR HGB CONC 32.3 G/dL (31.0-37.0); MEAN CORPUSCULAR VOLUME 80 fL (80-100); MONOCYTES # (AUTO) 0.3 K/uL (0.1-1.0); NEUTROPHILS # (AUTO) 7.1 K/uL (1.8-7.7); PLATELET COUNT (AUTO) 181 K/uL (150-450); RED BLOOD CELL COUNT(AUTO) 5.09 MIL/uL (4.50-5.90); RED CELL DISTRIBUTION WIDTH 18.3 % (11.5-14.5)
[2024-05-26 00:46] LABS: NEUTROPHILS % (AUTO) 88.5 % (40.0-70.0)
[2024-05-26 00:52] LABS: ANION GAP 12 mmol/L (8-16); CARBON DIOXIDE 29 mmol/L (22-29); CHLORIDE 96 mmol/L (98-107); GLOMERULAR FILTR. RATE CALC 15 mL/min (>60); GLUCOSE,RANDOM 175 mg/dL (70-110); POTASSIUM 3.9 mmol/L (3.5-5.1); SODIUM SERUM 137 mmol/L (136-145); UREA NITROGEN, BLOOD 23 mg/dL (7-18)
[2024-05-26 00:56] LABS: ALBUMIN 3.1 g/dL (3.4-5.0); BILIRUBIN,DIRECT 0.3 mg/dL (0.00-0.20); BILIRUBIN,TOTAL 0.8 mg/dL (0.1-1.0); TOTAL PROTEIN, SERUM 7.2 g/dL (6.4-8.2)
[2024-05-26 00:59] LABS: LACTIC ACID 1.9 mmol/L (0.4-2.0)
[2024-05-26 01:01] LABS: LIPASE 23 U/L (16-77); TROPONIN I-HIGH SENSITIVITY 66 ng/L (<76)
[2024-05-26 01:07] LABS: B-TYPE NATRIURETIC PEPTIDE < 5000 pg/mL (0-100)
[2024-05-26 03:34] LABS: TROPONIN I-HIGH SENSITIVITY 89 ng/L (<76)
[2024-05-26 03:43] VITALS: BP 139/90; PULSE 68; RESP 18; TEMP 97.7; O2SAT 99
[2024-05-26 05:44] VITALS: BP 131/71; PULSE 66; RESP 18; TEMP 97.7; O2SAT 99
[2024-05-26 07:25] VITALS: BP 135/79; PULSE 67; RESP 19; TEMP 97.8; O2SAT 100
[2024-05-26] MEDS: SEVELAMER CARBONATE 800 MG TABLET PO SCH (08:00)
[2024-05-26] MEDS: BUMETANIDE 1 MG TABLET PO SCH (09:00)
[2024-05-26] MEDS: ISOSORBIDE DINITRATE 5 MG TABLET PO SCH (09:00)
[2024-05-26 12:00] VITALS: BP 141/74; PULSE 65; RESP 18; TEMP 98.2; O2SAT 99
[2024-05-26 17:44] VITALS: BP 123/54; PULSE 62; RESP 18; TEMP 98; O2SAT 100
[2024-05-26] MEDS: CALCITRIOL 0.25 MCG CAPSULE PO SCH (18:14)
[2024-05-26] MEDS: SACUBITRIL/VALSARTAN 24-26 MG TABLET PO SCH (18:14)
[2024-05-26] MEDS: FOLIC ACID/VIT B COMPLEX AND C TABLET PO SCH (18:14)
[2024-05-26] MEDS: NIFEdipine 60 MG ER TABLET PO SCH (18:16)
[2024-05-26] MEDS: ASPIRIN 81 MG DR TABLET PO SCH (18:16)
[2024-05-26] MEDS: ATORVASTATIN CALCIUM 20 MG TABLET PO SCH (21:00)
[2024-05-27] VITALS (13 sets, daily range): BP systolic 87–139; BP diastolic 46–78; PULSE 60–103; RESP 17–18; TEMP 97.8–98.3; O2SAT 95–98
[2024-05-27] MEDS: HEPARIN SODIUM,PORCINE 5,000 UNITS/ML VIAL SQ ONE (01:07)
[2024-05-27] MEDS ORDERED: HEPARIN SODIUM,PORCINE 5,000 UNITS/ML VIAL SQ SCH (02:00)
[2024-05-27] MEDS: HEPARIN SODIUM,PORCINE 5,000 UNITS/ML VIAL SQ SCH (08:00)
[2024-05-27] MEDS ORDERED: SODIUM CHLORIDE 0.9% 1,000 ML ONE (14:40)
== END 2024-05-27 20:50 | disposition home or self-care (01) | DRG 194 ==
LOC: EMS 22:04 → EDH 05-26 00:15 → 5N 05-26 03:39
PROVIDERS: ADMIT Internal Medicine; ATTEND Internal Medicine
PROC: 5A1D70Z Performance of Urinary Filtration, Intermittent, Less than 6 Hours Per Day (ICD-10-PCS; principal; 2024-05-27)
DX: I13.2 Hypertensive heart and chronic kidney disease with heart failure and with stage 5 chronic kidney disease, or end stage renal disease (principal); G93.41 Metabolic encephalopathy; N17.9 Acute kidney failure, unspecified; E83.39 Other disorders of phosphorus metabolism; N18.6 End stage renal disease; D63.1 Anemia in chronic kidney disease; I16.1 Hypertensive emergency; I50.43 Acute on chronic combined systolic (congestive) and diastolic (congestive) heart failure; E11.22 Type 2 diabetes mellitus with diabetic chronic kidney disease; E78.5 Hyperlipidemia, unspecified; R09.02 Hypoxemia; Z99.2 Dependence on renal dialysis; Z82.49 Family history of ischemic heart disease and other diseases of the circulatory system; Z83.3 Family history of diabetes mellitus; Z91.119 Patient's noncompliance with dietary regimen due to unspecified reason
CPT/HCPCS: 80048; 80076; 83605; 83690; 83880; 84484; 85025; 87081; 87340; 90935; 93005; 97116; 97162; 99285; J1644; J2270; J2765; J3490; J7030

== ENCOUNTER 2024-11-25 17:48 | Inpatient (IN) | payer OTHER ==
[~2024-11-25] VITALS: Ht 180.3 cm; Wt 87.2 kg
[~2024-11-25 17:48] MED LIST changes: +[UNRECOGNIZED DRUG - CODE] MC; -[UNRECOGNIZED DRUG - CODE] MC
[2024-11-25 18:35] LABS: PLATELET COUNT (AUTO) 216 K/uL (150-450); RED BLOOD CELL COUNT(AUTO) 4.39 MIL/uL (4.50-5.90); RED CELL DISTRIBUTION WIDTH 19.6 % (11.5-14.5); WHITE BLOOD COUNT (AUTO) 6.6 K/uL (4.5-11.0)
[2024-11-25 18:45] LABS: CALCIUM, TOTAL 7.8 mg/dL (8.8-10.5); CREATININE 8.22 mg/dL (0.60-1.30); GLOMERULAR FILTR. RATE CALC 8 mL/min (>60); GLUCOSE,RANDOM 191 mg/dL (70-110); SODIUM SERUM 134 mmol/L (136-145); UREA NITROGEN, BLOOD 39 mg/dL (7-18)
[2024-11-25 18:59] LABS: TROPONIN I-HIGH SENSITIVITY 259 ng/L (<76)
[2024-11-25 19:09] LABS: ASPARTATE AMINOTRANSFERASE 320 U/L (15-37); TOTAL PROTEIN, SERUM 6.9 g/dL (6.4-8.2)
[2024-11-25] MEDS: ONDANSETRON HCL 4 MG/2 ML VIAL IVP ONE (19:43)
[2024-11-25] MEDS: FAMOTIDINE 20 MG/2 ML VIAL IVP ONE (19:43)
[2024-11-25] MEDS: MORPHINE SULFATE 2 MG/ML SYRINGE IVP ONE (19:44)
[2024-11-25 20:55] LABS: TROPONIN I-HIGH SENSITIVITY 235 ng/L (<76)
[2024-11-26] VITALS: BP 165/85; PULSE 70; RESP 20; TEMP 97.5; O2SAT 99
[2024-11-26] MEDS: ONDANSETRON HCL 4 MG/2 ML VIAL IVP PRN (00:31)
[2024-11-26] MEDS: MORPHINE SULFATE 2 MG/ML SYRINGE IVP PRN (03:59)
[2024-11-26 04:00] VITALS: BP 115/66; PULSE 62; RESP 18; TEMP 97.7; O2SAT 100
[2024-11-26 12:16] VITALS: BP 107/60; PULSE 58; RESP 19; TEMP 97.6; O2SAT 99
[2024-11-26 20:19] LABS: PLATELET COUNT (AUTO) 187 K/uL (150-450); RED BLOOD CELL COUNT(AUTO) 4.19 MIL/uL (4.50-5.90); RED CELL DISTRIBUTION WIDTH 19.2 % (11.5-14.5); WHITE BLOOD COUNT (AUTO) 3.3 K/uL (4.5-11.0)
[2024-11-26 20:26] LABS: CALCIUM, TOTAL 7.5 mg/dL (8.8-10.5); CREATININE 9.31 mg/dL (0.60-1.30); GLOMERULAR FILTR. RATE CALC 7.0 mL/min (>60); GLUCOSE,RANDOM 151.0 mg/dL (70-110); SODIUM SERUM 134.0 mmol/L (136-145); UREA NITROGEN, BLOOD 46.0 mg/dL (7-18)
[2024-11-26 20:31] LABS: ASPARTATE AMINOTRANSFERASE 43.0 U/L (15-37); TOTAL PROTEIN, SERUM 5.5 g/dL (6.4-8.2)
[2024-11-26 21:00] LABS: BAND NEUTROPHILS % (MANUAL) 2 % (0-5); BASOPHILS % (MANUAL) 1 % (0-2); EOSINOPHILS % (MANUAL) 2 % (1-6); LYMPHOCYTES % (MANUAL) 20 % (22-44); MONOCYTES % (MANUAL) 10 % (2-9); SEGMENTED NEUTROPHILS % 65 % (40-70)
[2024-11-26 23:50] VITALS: BP 114/72; PULSE 59; RESP 18; TEMP 97.5; O2SAT 98
[2024-11-27 05:02] VITALS: BP 115/71; PULSE 60; RESP 19; TEMP 97.5; O2SAT 98
[2024-11-27 06:45] LABS: PLATELET COUNT (AUTO) 182 K/uL (150-450); RED BLOOD CELL COUNT(AUTO) 3.92 MIL/uL (4.50-5.90); RED CELL DISTRIBUTION WIDTH 19.8 % (11.5-14.5); WHITE BLOOD COUNT (AUTO) 3.2 K/uL (4.5-11.0)
[2024-11-27 06:54] LABS: ASPARTATE AMINOTRANSFERASE 43.0 U/L (15-37); CALCIUM, TOTAL 7.0 mg/dL (8.8-10.5); CREATININE 9.19 mg/dL (0.60-1.30); GLOMERULAR FILTR. RATE CALC 7.0 mL/min (>60); GLUCOSE,RANDOM 167.0 mg/dL (70-110); SODIUM SERUM 134.0 mmol/L (136-145); TOTAL PROTEIN, SERUM 5.4 g/dL (6.4-8.2); UREA NITROGEN, BLOOD 47.0 mg/dL (7-18)
[2024-11-27 08:06] VITALS: BP 123/68; PULSE 58; RESP 18; TEMP 97.5; O2SAT 99
[2024-11-27 11:08] VITALS: BP 128/77; PULSE 58; RESP 16; TEMP 97.5; O2SAT 100
[2024-11-27 15:11] VITALS: BP 131/75; PULSE 57; RESP 16; TEMP 97.7; O2SAT 99
[2024-11-27 20:48] VITALS: BP 107/63; PULSE 55; RESP 18; TEMP 97.8; O2SAT 99
[2024-11-27] MEDS ORDERED: DEXTROSE 50%-WATER 25 GM/50 ML SYRINGE IVP PRN (22:15)
[2024-11-27] MEDS: INSULIN LISPRO 100 UNITS/ML SQ PRN (22:16)
[2024-11-28] VITALS (14 sets, daily range): BP systolic 110–156; BP diastolic 62–87; PULSE 53–79; RESP 18–19; TEMP 97.2–98.2; O2SAT 95–97
[2024-11-28 06:17] LABS: PLATELET COUNT (AUTO) 185 K/uL (150-450); RED BLOOD CELL COUNT(AUTO) 3.95 MIL/uL (4.50-5.90); RED CELL DISTRIBUTION WIDTH 19.4 % (11.5-14.5); WHITE BLOOD COUNT (AUTO) 4.6 K/uL (4.5-11.0)
[2024-11-28 06:31] LABS: ASPARTATE AMINOTRANSFERASE 37.0 U/L (15-37); CALCIUM, TOTAL 7.3 mg/dL (8.8-10.5); CREATININE 9.52 mg/dL (0.60-1.30); GLOMERULAR FILTR. RATE CALC 7.0 mL/min (>60); GLUCOSE,RANDOM 91.0 mg/dL (70-110); SODIUM SERUM 133.0 mmol/L (136-145); TOTAL PROTEIN, SERUM 6.2 g/dL (6.4-8.2); UREA NITROGEN, BLOOD 54.0 mg/dL (7-18)
[2024-11-28] MEDS ORDERED: SODIUM CHLORIDE 0.9% 2,000 ML ONE (10:28)
[2024-11-28] MEDS ORDERED: MORPHINE SULFATE 4 MG/ML VIAL IVP PRN (14:45)
[2024-11-29 00:15] VITALS: BP 117/75; PULSE 69; RESP 18; TEMP 97.2; O2SAT 96
[2024-11-29 05:55] LABS: PLATELET COUNT (AUTO) 139 K/uL (150-450); RED BLOOD CELL COUNT(AUTO) 3.65 MIL/uL (4.50-5.90); RED CELL DISTRIBUTION WIDTH 20.3 % (11.5-14.5); WHITE BLOOD COUNT (AUTO) 4.1 K/uL (4.5-11.0)
[2024-11-29 06:01] VITALS: BP 111/60; PULSE 61; RESP 18; TEMP 98.2; O2SAT 96
[2024-11-29 06:13] LABS: ASPARTATE AMINOTRANSFERASE 49.0 U/L (15-37); CALCIUM, TOTAL 7.1 mg/dL (8.8-10.5); CREATININE 7.18 mg/dL (0.60-1.30); GLOMERULAR FILTR. RATE CALC 10.0 mL/min (>60); GLUCOSE,RANDOM 163.0 mg/dL (70-110); SODIUM SERUM 132.0 mmol/L (136-145); TOTAL PROTEIN, SERUM 5.7 g/dL (6.4-8.2); UREA NITROGEN, BLOOD 44.0 mg/dL (7-18)
[2024-11-29 08:20] VITALS: BP 125/69; PULSE 61; RESP 18; TEMP 97.5; O2SAT 96
[2024-11-29 10:12] LABS: SPECIMENTYPE,BODY FLUID ASCV
[2024-11-29 11:32] VITALS: BP 120/65; PULSE 58; RESP 18; TEMP 97.8; O2SAT 97
[2024-11-29 12:27] LABS: APPEARANCE,UNSPUN,BODY FLUID TURBID (CLEAR); COLOR,BODY FLUID YELLOW (LT YELLOW)
[2024-11-29 12:28] LABS: TOTAL VOLUME,BODY FLUID 1100 mL
[2024-11-29 13:00] LABS: APPEARANCE,SPUN,BODY FLUID CLEAR (CLEAR); BASOPHILS,BODY FLUID 0 %; BODY FLUID RBC 166.0 /cu. mm.; EOSINOPHILS,BF (ANAL) 0 %; LYMPHOCYTES,BODY FLUID 23 %; MONOCYTES,BODY FLUID 6 %; NEUTROPHILS,BODY FLUID 19 %; WBC, BODY FLUID 101 /cu. mm.
[2024-11-29 13:01] LABS: COMMENT,BODY FLUID MESOTHELIAL=22
[2024-11-29 13:02] LABS: OTHER CELLS,BODY FLUID MACROPHAGES=30
[2024-11-29 13:03] LABS: PH, BODY FLUID 8.0
[2024-11-29 15:31] VITALS: BP 130/61; PULSE 59; RESP 19; TEMP 97.7; O2SAT 98
[2024-11-30 15:07] LABS: GLUCOSE, BODY FLUID,REF 151.0 mg/dL; LDH,BODY FLUID,REF 109.0 IU/L; TOTAL PROTEIN,BODY FLUID,REF 3.4 g/dL; URIC ACID, BODY FLUID,REF 4.5 mg/dL
== END 2024-11-29 18:55 | disposition home or self-care (01) | DRG 194 ==
LOC: EMS 18:25 → EDH 22:29 → 5S 11-26 00:15
PROVIDERS: ADMIT Hospitalist; ATTEND Hospitalist
PROC: 5A1D70Z Performance of Urinary Filtration, Intermittent, Less than 6 Hours Per Day (ICD-10-PCS; principal; 2024-11-28)
PROC: 0W9G3ZZ Drainage of Peritoneal Cavity, Percutaneous Approach (ICD-10-PCS; 2024-11-29)
DX: I13.2 Hypertensive heart and chronic kidney disease with heart failure and with stage 5 chronic kidney disease, or end stage renal disease (principal); N18.6 End stage renal disease; R18.8 Other ascites; N17.9 Acute kidney failure, unspecified; E83.39 Other disorders of phosphorus metabolism; D63.1 Anemia in chronic kidney disease; I50.23 Acute on chronic systolic (congestive) heart failure; E11.22 Type 2 diabetes mellitus with diabetic chronic kidney disease; E78.5 Hyperlipidemia, unspecified; Z82.49 Family history of ischemic heart disease and other diseases of the circulatory system; Z83.3 Family history of diabetes mellitus; Z91.119 Patient's noncompliance with dietary regimen due to unspecified reason; Z91.158 Patient's noncompliance with renal dialysis for other reason; Z99.2 Dependence on renal dialysis
CPT/HCPCS: 49082; 49083; 74176; 76942; 80048; 80053; 80076; 82570; 82945; 83615; 83690; 83880; 83986; 84157; 84478; 84484; 84560; 85025; 86706; 87075; 87081; 87205; 89051; 90935; 93005; 96374; 96375; 97166; 97535; 99285; G0378; J2270; J2405; J3490; J7030

== ENCOUNTER 2024-12-15 01:15 | Emergency (ER) | payer OTHER ==
[~2024-12-15] VITALS: Ht 180.3 cm; Wt 68.2 kg
[~2024-12-15 01:15] MED LIST changes: -BUME1TAB50 PO
[2024-12-15 03:34] VITALS: BP 151/90; PULSE 60; RESP 19; O2SAT 98
== END 2024-12-15 04:05 | disposition home or self-care (01) ==
LOC: EMS 01:17
DX: R53.1 Weakness (principal)
CPT/HCPCS: 99281; Z7502